=== PATIENT | female | born 1965 | race African-American/Black ===

== ENCOUNTER 2018-11-28 15:38 | Emergency (ER) | payer OTHER ==
--- OUTSIDE RECORDS SUMMARY | 2018-11-28 15:42 | XMS REPORT | Clinical Summary ---
:1965 Author Organization [facility] Address [address] [place] [address] Care Team Providers Name Role Phone Lj Lowe MD Primary Care Provider Allergies Active Allergy Reactions Severity Noted Date Comments Codeine 01/01/2017 Medications Medication Sig Dispensed Refills Start Date End Date Status carvedilol (COREG) 12.5 mg. 1/2 0 12/13/2016 Active 12.5 MG tablet tab bid lisinopril Take 20 mg by 1 10/31/2016 Active (PRINIVIL,ZESTRIL) mouth once 20 mg tablet daily. aspirin 325 MG Take 325 mg by 0 Active tablet mouth daily. pravastatin Take 40 mg by 0 Active (PRAVACHOL) 40 MG mouth daily. tablet TRULICITY 1.5 INJECT UNDER 1 03/05/2018 Active mg/0.5 mL pen THE SKIN 1 PEN injector EVERY WEEK OXcarbazepine Take 1 tab in 270 tablet 3 04/15/2018 Active (TRILEPTAL) 300 MG the AM and 1.5 tabletIndications: tabs in the PM Partial seizures with aphasia (HCC) diclofenac Apply topically 1 Tube 6 04/15/2018 Active (VOLTAREN) 1 % 4 (four) times gelIndications: a day. Lumbar radiculopathy, chronic, Chronic myelopathy (HCC) OXcarbazepine TAKE 1 TABLET 270 tablet 2 07/18/2018 Active (TRILEPTAL) 300 MG BY MOUTH EVERY tabletIndications: MORNING AND 1 & Partial seizures 1/2 TABLET with aphasia (HCC) EVERY EVENING KOMBIGLYZE XR Take 5 tablets 1 10/13/2016 Discontinued 5-1,000 mg tablet, by mouth once 8 ER multiphase 24 hr daily. diclofenac Apply topically 1 Tube 6 04/16/2017 Discontinued (VOLTAREN) 1 % 4 (four) times 8 gelIndications: a day. Lumbar radiculopathy, chronic OXcarbazepine Take 1 tab in 270 tablet 2 10/15/2017 Discontinued (TRILEPTAL) 300 MG the AM and 1.5 8 tabletIndications: tabs in the PM Partial seizures with aphasia (HCC) Active Problems Problem Noted Date Chronic myelopathy 04/15/2018 Partial seizures with aphasia 04/15/2018 Lumbar radiculopathy, chronic 04/15/2018 Encounters Date Type Specialty Care Team Description 07/17/2018 Refill Neurology Humberto Yoon MD Partial seizures with aphasia 04/15/2018 Office Visit Neurology Humberto Yoon MD Chronic myelopathy ( Primary Dx); Partial seizures with aphasia; Lumbar radiculopathy, chronic 04/15/2018 Orders Only Neurology Humberto Yoon MD 04/15/2018 Orders Only Neurology Humberto Yoon MD after 11/27/2017 Social History Tobacco Use Types Packs/Day Years Used Date Never Smoker Smokeless Tobacco: Never Used Alcohol Use Drinks/Week oz/Week Comments No Sex Assigned at Date Recorded Not on file Job Start Date Occupation Industry Not on file Not on file Not on file Travel History Travel Start Travel End No recent travel history available. Last Filed Vital Signs Vital Sign Reading Time Taken Blood Pressure 122/70 04/15/2018 10:03 AM CDT Pulse 84 04/15/2018 10:03 AM CDT Temperature - - Respiratory Rate - - Oxygen Saturation - - Inhaled Oxygen Concentration - - Weight 74.8 kg (165 lb) 04/15/2018 10:03 AM CDT Height 162.6 cm (5' 4") 04/15/2018 10:03 AM CDT Body Mass Index 28.32 04/15/2018 10:03 AM CDT Plan of Treatment Health Maintenance Due Date Last Done Comments CERVICAL CANCER SCREENING 1986 BREAST CANCER SCREENING 2015 COLON CANCER SCREENING 2015 SHINGLES VACCINES (1 of 2) 2015 INFLUENZA VACCINE 06/08/2018 Procedures Procedure Name Priority Date/Time Associated Comments Diagnosis OXCARBAZEPINE LEVEL Routine 04/15/2018 10:33 Results for this AM CDT procedure are in the results section. OXCARBAZEPINE LEVEL Routine 04/15/2018 10:33 Results for this AM CDT procedure are in the results section. BASIC METABOLIC PANEL Routine 04/15/2018 10:33 Results for this AM CDT procedure are in the results section. after 11/27/2017 Results Oxcarbazepine level (04/15/2018 10:33 AM CDT)Only the most recent of2 resultswithin the time period is included. Oxcarbazepine 8.9 8.0 - 35.0 mcg/mL [email or web address] [facility] Maps Narrative Performed At FASTING: UNKNOWN [facility] Resulting Agency Comment Performing Organization Information: Site ID: [id number] Name: [employer] [facility] Address: [address] [place] [id number] Director: Jarad Gomez M.D.,PhD Performing Organization Address City/State/Zipcode Phone Number [place] [email or web address] [address] [place] [address] [phone] [place] Basic metabolic panel (04/15/2018 10:33 AM CDT) Glucose 92 65 - 99 mg/dL [employer] Comment: [place] Fasting reference interval BUN, whole blood 7 7 - 25 mg/dL [email or web address] [place] Creatinine 0.74 0.50 - 1.05 [email or web address] Comment: mg/dL [place] For patients >49 years of age, the reference limit for Creatinine is approximately 13% higher for people identified as -Citizen Of [place]. EGFR Non-Afr. Citizen Of [place] 93 > OR=60 [facility] mL/min/1.73m2 [place] EGFR 108 > OR=60 [facility] mL/min/1.73m2 [place] BUN/creatinine ratio NOT APPLICABLE 6 - 22 (calc) [facility] [place] Sodium 140 135 - 146 mmol/L [facility] [place] Potassium 4.8 3.5 - 5.3 mmol/L [facility] [place] Chloride 108 98 - 110 mmol/L [facility] [place] CO2 26 20 - 31 mmol/L [facility] [place] Calcium 9.4 8.6 - 10.4 mg/dL [facility] [place] Narrative Performed At PT ID [id number] [facility] FASTING: UNKNOWN Resulting Agency Comment Performing Organization Information: Site ID: [id number] Name: [facility] Address: [address] [place] [phone] Director: Daisy Tabares Performing Organization Address City/State/Zipcode Phone Number [email or web address] [place] [address] [phone] after 11/27/2017 Insurance Payer Benefit Plan / Group Subscriber ID Type Phone Address AETNA AETNA PPO OPEN CHOICE xxxxxxxxxx PPO MEDICARE MEDICARE PART A AND B xxxxxxxxxx Medicare [place], [place] Advance Directives Patient has advance care planning documents on file. For more information, please contact:Juaquin Nath[address] [place] [address]
[2018-11-28 16:22] LABS: Absolute Lymphocytes (CBC) 2.8 K/uL (0.7-4.9); Absolute Monocytes 0.9 K/uL (0.1-1.3); Absolute Neutrophil 5.1 K/uL (1.8-8.0); Basophils % 0.8 % (0-1.3); Eosinophils % 1.2 % (0-4.4); Hematocrit 43.2 % (36.0-45.0); Lymphocytes % 30.9 % (15.3-44.8); MPV 8.1 fL (7.6-11.3); Monocytes % 9.8 % (3.3-12.3); RBC Red Blood Cell Count 5.13 M/uL (3.86-4.86)
[2018-11-28 16:41] LABS: BUN Blood Urea Nitrogen 13 mg/dL (7-18); Bicarbonate 28 mmol/L (21-32); Glucose Level 107 mg/dL (74-106); Potassium 3.5 mmol/L (3.5-5.1); Sodium Level 143 mmol/L (136-145); Troponin (Emerg Dept Use Only) < 0.02 ng/mL (0.0-0.045)
--- NOTE | 2018-11-28 17:00 | RAD REPORT ---
EXAM DESCRIPTION: Juaquin Mckeon (2 Views)11/28/2018 4:52 pm CLINICAL HISTORY: Chest pain COMPARISON: 2015 FINDINGS: The lungs appear clear of acute infiltrate. The heart is normal size IMPRESSION: No acute abnormalities displayed
--- NOTE | 2018-11-28 17:09 | EKG ---
Test Date: 2018-11-28 Test Time: 15:49:39 Manager Solar: [employer] MEASUREMENT RESULTS: Intervals: Rate: 83 MN: 110 QRSD: 80 QT: 346 QTc: 406 Veblen: P: 44 MN: 110 QRS: 74 T: -5 INTERPRETIVE STATEMENTS: Sinus rhythm with short MN Nonspecific T wave abnormality Abnormal ECG Compared to ECG 11/27/2015 14:58:20 No significant changes Electronically Signed On 11-28-18 17:08:05 MANUFA[employer]URING [employer]LLER by Jacky Bentley
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
--- NOTE | 2018-11-28 17:36 | ER ---
Nurse's Notes [facility] Name: Simeon Santa Age: 53 yrs Sex: Female : 1965 Arrival Date: 11/28/2018 Time: 15:39 Bed 20 Private MD: Matthew Lowe B Diagnosis: Other chest pain Presentation: 11/28 15:41 Presenting complaint: Patient states: left sided chest pain, nausea started today. SOB sv with ambulation. Transition of care: patient was not received from another setting of care. Onset of symptoms was November 28, 2018. Care prior to arrival: None. 15:41 Method Of Arrival: Wheelchair sv 15:41 Acuity: VISHNU 3 sv 16:19 Risk Assessment: Do you want to hurt yourself or someone else? Patient reports no hb desire to harm self or others. Initial Sepsis Screen: Does the patient meet any 2 criteria? No. Patient's initial sepsis screen is negative. Does the patient have a suspected source of infection? No. Patient's initial sepsis screen is negative. Historical: - Allergies: 15:42 Codeine; sv - PMHx: 15:42 Hypertension; Diabetes - NIDDM; sv - PSHx: 15:42 brain sx (2011); radiation; sv - Immunization history:: Adult Immunizations up to date. - Social history:: Smoking status: Patient/guardian denies using tobacco. - Ebola Screening: : No symptoms or risks identified at this time. Screenin:48 Abuse screen: Denies threats or abuse. Denies injuries from another. Nutritional hb screening: No deficits noted. Tuberculosis screening: No symptoms or risk factors identified. Fall Risk None identified. Assessment: 15:55 General: Appears in no apparent distress. Behavior is calm, cooperative. Pain: hb Complains of pain in anterior aspect of left upper chest Pain does not radiate. Pain began suddenly, 3 hours ago. Neuro: Level of Consciousness is awake, alert, obeys commands, Oriented to person, place, time, situation. Cardiovascular: Heart tones S1 S2 present Capillary refill < 3 seconds Patient's skin is warm and dry. Respiratory: Airway is patent Respiratory effort is even, unlabored, Respiratory pattern is regular, symmetrical, Breath sounds are clear bilaterally. GI: No signs and/or symptoms were reported involving the gastrointestinal system. : No signs and/or symptoms were reported regarding the genitourinary system. EENT: No signs and/or symptoms were reported regarding the EENT system. Derm: Skin is intact, is healthy with good turgor, Skin is pink, warm \T\ dry. normal. Musculoskeletal: No signs and/or symptoms reported regarding the musculoskeletal system. 16:45 Reassessment: Patient appears in no apparent distress at this time. No changes from hb previously documented assessment. Patient and/or family updated on plan of care and expected duration. Pain level reassessed. Patient is alert, oriented x 3, equal unlabored respirations, skin warm/dry/pink. 17:45 Reassessment: Patient appears in no apparent distress at this time. No changes from hb previously documented assessment. Patient and/or family updated on plan of care and expected duration. Pain level reassessed. Patient is alert, oriented x 3, equal unlabored respirations, skin warm/dry/pink. Vital Signs: 15:42 BP 140 / 85; Pulse 89; Resp 16; Temp 98; Pulse Ox 100% ; Weight 72.57 kg; Height 5 ft. sv 5 in. (165.10 cm); Pain 4/10; 16:45 BP 138 / 88; Pulse 87; Resp 16; Pulse Ox 99% on R/A; hb 17:45 BP 136 / 86; Pulse 86; Resp 16; Pulse Ox 100% on R/A; Pain 3/10; hb 15:42 Body Mass Index 26.63 (72.57 kg, 165.10 cm) sv ED Course: 15:39 Patient arrived in ED. sb2 15:39 Matthew Lowe MD is Private Physician. sb2 15:41 Triage completed. sv 15:43 Arm band placed on. sv 15:44 Michelle Harden, AMADO is Primary Nurse. hb 15:48 Patient has correct armband on for positive identification. Placed in gown. Bed in low hb position. Call light in reach. Side rails up X 1. court recording monitor on. Pulse ox on. NIBP on. 15:48 Patient maintains SpO2 saturation greater than 95% on room air. hb 15:51 [facility]ins [facility]. jr8 15:51 Xander Jones MD is Attending Physician. jr8 16:04 EKG done, by electrophysiology tech. reviewed by Domenico MCKINNON. 3 16:20 Initial lab(s) drawn, by ne, sent to lab. Inserted saline lock: 22 gauge in right 5 antecubital area, using aseptic technique. Blood collected. 16:20 Basic Metabolic Panel Sent. 5 16:20 CBC with Diff Sent. [facility] 16:21 Troponin (emerg Dept Use Only) Sent. [facility] 16:48 Patient moved to radiology via wheelchair. 16:48 X-ray completed. Patient tolerated procedure well. 16:48 Patient moved back from radiology. 16:55 XRAY Chest Pa And Lat (2 Views) In Process Unspecified. EDNV 17:35 Matthew Lowe MD is Referral Physician. [facility] 18:02 No provider procedures requiring assistance completed. IV discontinued, intact, hb bleeding controlled, No redness/swelling at site. Pressure dressing applied. Administered Medications: No medications were administered Outcome: 17:35 Discharge ordered by . [facility] 18:02 Discharged to home ambulatory, with significant other. hb 18:02 Condition: stable 18:02 Discharge instructions given to patient, significant other, Instructed on discharge instructions, follow up and referral plans. medication usage, Demonstrated understanding of instructions, follow-up care, medications, Prescriptions given X 2. 18:03 Patient left the ED. Signatures: Dispatcher [employer] EDNV Jenise Oh, RN Domenico Pedersen PA PA 8 Michelle Harden, Richelle Cantrell RN 5 Kobe Palmer Sheri 2 Sunshine Rapp 3
[2018-11-28 18:19] VITALS: TEMP 98
[2018-11-28 18:20] VITALS: BP 136/86; O2SAT 100
== END 2018-11-28 18:03 | disposition home or self-care (01) ==
LOC: ER 15:38
DX: R07.89 Other chest pain (principal); Z88.6 Allergy status to analgesic agent
CPT/HCPCS: 36415; 71046; 80048; 84484; 85025; 93005; 99285

== ENCOUNTER 2019-11-02 06:24 | Emergency (ER) | payer OTHER ==
[2019-11-02] MEDS ORDERED: ACETAMINOPHEN 500 MG TAB ONE (07:07)
[2019-11-02] MEDS ORDERED: IBUPROFEN 200 MG TAB PO ONE (07:07)
[2019-11-02] MEDS ORDERED: IBUPROFEN 400 MG TAB ONE (07:09)
--- NOTE | 2019-11-02 07:55 | EDPHYS ---
Physician Documentation [facility] Name: Simeon Santa Age: 54 yrs Sex: Female : 1965 Arrival Date: 11/02/2019 Time: 06:25 Bed 5 Private MD: ED Physician Xander Jones HPI: 11/02 07:29 This 54 yrs old Black Female presents to ER via Wheelchair with complaints of Flu la1 Symptoms. 07:29 The patient reports fever, that was measured at 100.3 degrees Fahrenheit. Onset: The la1 symptoms/episode began/occurred yesterday. Modifying factors: The patient has had contact with sick grandchild with flu . Associated signs and symptoms: Pertinent positives: cough, myalgias. Severity of symptoms: At their worst the symptoms were mild in the emergency department the symptoms have improved. The patient has not experienced similar symptoms in the past. The patient has not recently seen a physician. pt reports she began having muscle aches, cough, chills, last night, was exposed to a child with the flu recently. 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 - Social history:: Smoking status: Patient/guardian denies using tobacco, Patient/guardian denies using alcohol, street drugs. - Ebola Screening: : No symptoms or risks identified at this time. ROS: 07:30 ENT: Negative for injury, pain, and discharge, Neck: Negative for injury, pain, and la1 swelling. 07:30 Abdomen/GI: Negative for abdominal pain, nausea, vomiting, diarrhea, and constipation, Back: Negative for injury and pain, : Negative for injury, bleeding, discharge, and swelling, MS/Extremity: Negative for injury and deformity, Neuro: Negative for headache, weakness, numbness, tingling, and seizure. 07:30 Constitutional: Positive for body aches, chills, fever, malaise. 07:30 Eyes: Negative for acute changes, icterus, matting, photophobia, redness. 07:30 Respiratory: Positive for cough, Negative for hemoptysis, orthopnea, pleurisy, shortness of breath, sputum production, wheezing. Exam: 07:31 Constitutional: This is a well developed, well nourished patient who is awake, alert, la1 and in no acute distress. Head/Face: Normocephalic, atraumatic. Eyes: Pupils equal round and reactive to light, extra-ocular motions intact. Periorbital areas with no swelling, redness, or edema. ENT: Nares patent. No nasal discharge, no septal abnormalities noted. Tympanic membranes are normal and external auditory canals are clear. Oropharynx with no redness, swelling, or masses, exudates, or evidence of obstruction, uvula midline. Mucous membranes moist. Neck: Trachea midline and no cervical lymphadenopathy. Supple, full range of motion without nuchal rigidity, or vertebral point tenderness. No Meningismus. Chest/axilla: Normal chest wall appearance and motion. Nontender with no deformity. No lesions are appreciated. Cardiovascular: Regular rate and rhythm with a normal S1 and S2. No gallops, murmurs, or rubs. Normal PMI, no JVD. No pulse deficits. Respiratory: Lungs have equal breath sounds bilaterally, clear to auscultation No rales, rhonchi or wheezes noted. No increased work of breathing, no retractions or nasal flaring. Abdomen/GI: Soft, non-tender, with normal bowel sounds. No distension No guarding or rebound. No evidence of tenderness throughout. Back: No spinal tenderness. No costovertebral tenderness. Full range of motion. MS/ Extremity: Pulses equal, no cyanosis. Neurovascular intact. Full, normal range of motion. Neuro: Awake and alert, GCS 15, oriented to person, place, time, and situation. . Normal gait. Vital Signs: 06:50 BP 116 / 70; Pulse 118; Resp 18; Temp 100.3(O); Pulse Ox 97% on R/A; Weight 72.57 kg jb4 (R); Height 5 ft. 5 in. (165.10 cm); Pain 8/10; 07:30 BP 132 / 71; Pulse 116; Resp 19 S; Pulse Ox 95% on R/A; jl7 08:00 BP 129 / 63; Pulse 105; Resp 18 S; Pulse Ox 97% ; aa5 06:50 Body Mass Index 26.63 (72.57 kg, 165.10 cm) jb4 MDM: 06:50 Patient medically screened. [facility] 07:52 Data reviewed: vital signs, nurses notes, lab test result(s), and as a result, I will la1 discharge patient. Data interpreted: Pulse oximetry: on room air is 95 %. Interpretation: acceptable. Counseling: I had a detailed discussion with the patient and/or guardian regarding: the historical points, exam findings, and any diagnostic results supporting the discharge/admit diagnosis, lab results, the need for outpatient follow up, a family practitioner, to return to the emergency department if symptoms worsen or persist or if there are any questions or concerns that arise at home. ED course: Pt in no respiratory distress, tolerating PO, discussed return precautions. . 11/02 07:04 Order name: Flu la1 11/02 07:04 Order name: Strep; Complete Time: 07:37 la1 11/02 07:05 Order name: Influenza Screen (A ; Complete Time: 07:37 EDMS 11/02 07:30 Order name: Throat Culture EDMS Administered Medications: 07:06 CANCELLED (Other Intervention Used): Tylenol 1000 mg PO once la1 07:11 Drug: Motrin 600 mg Route: PO; 7 08:00 Follow up: Response: No adverse reaction aa5 08:00 Drug: Tamiflu 75 mg Route: PO; aa5 08:00 Follow up: Response: No adverse reaction; Medication administered at discharge. aa5 Disposition: 11/03 05:39 Co-signature as Attending Physician, Xander Jones MD I agree with the assessment and [facility] plan of care. Disposition: 11/02/19 07:53 Discharged to Home. Impression: Influenza due to identified novel influenza A virus. - Condition is Stable. - Discharge Instructions: Fever, Adult, Influenza, Adult. - Prescriptions for Tamiflu 75 mg Oral Capsule - take 1 tablet by ORAL route every 12 hours for 5 days; 9 tablet. - Medication Reconciliation Form, Thank You Letter form. - Follow up: Private Physician; When: 2 - 3 days; Reason: Recheck today's complaints, Re-evaluation by your physician. Follow up: Emergency Department; When: As needed. - Problem is new. - Symptoms have improved. Signatures: Dispatcher [employer] EDMS Xander Jones MD MD cha Calderon, Audri, RN RN aa5 Joshua Nichole, PIPE FITTER GAS PIPE-C PIPE FITTER GAS PIPE-Cla1 Quan Robbins, RN RN jb4 Laura Birch RN RN jl7 Corrections: (The following items were deleted from the chart) 11/02 07:06 07:04 Tylenol 1000 mg PO once ordered. la1 la1 08:07 07:53 11/02/2019 07:53 Discharged to Home. Impression: Influenza due to identified aa5 novel influenza A virus. Condition is Stable. Forms are Medication Reconciliation Form, Thank You Letter, Antibiotic Education, Prescription Opioid Use. Follow up: Private Physician; When: 2 - 3 days; Reason: Recheck today's complaints, Re-evaluation by your physician. Follow up: Emergency Department; When: As needed. Problem is new. Symptoms have improved. la1
--- NOTE | 2019-11-02 07:55 | ER ---
Nurse's Notes [facility] Name: Simeon Santa Age: 54 yrs Sex: Female : 1965 Arrival Date: 11/02/2019 Time: 06:25 Bed 5 Private MD: Diagnosis: Influenza due to identified novel influenza A virus Presentation: 11/02 06:50 Presenting complaint: Patient states: Yesterday I started having a soar throat which jb4 progressed to cough and a stuffy nose. It only worsened to having body aches, chills, and fever. 06:50 Transition of care: patient was not received from another setting of care. Onset of jb4 symptoms was November 02, 2019. Risk Assessment: Do you want to hurt yourself or someone else? Patient reports no desire to harm self or others. Initial Sepsis Screen: Does the patient meet any 2 criteria? HR > 90 bpm. Yes Does the patient have a suspected source of infection? No. Patient's initial sepsis screen is negative. Care prior to arrival: None. 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 - Social history:: Smoking status: Patient/guardian denies using tobacco, Patient/guardian denies using alcohol, street drugs. - Ebola Screening: : No symptoms or risks identified at this time. Screenin:00 Abuse screen: Denies threats or abuse. Denies injuries from another. Nutritional jl7 screening: No deficits noted. Tuberculosis screening: No symptoms or risk factors identified. Fall Risk None identified. Assessment: 07:00 General: Appears in no apparent distress. uncomfortable, ill, Behavior is calm, jl7 cooperative, appropriate for age. Pain: Complains of pain in all over Pain currently is 8 out of 10 on a pain scale. Quality of pain is described as aching, Is continuous. Neuro: Level of Consciousness is awake, alert, obeys commands, Oriented to person, place, time, situation. Cardiovascular: Patient's skin is warm and dry. Respiratory: Reports sneezing Airway is patent Respiratory effort is even, unlabored, Respiratory pattern is regular, symmetrical. GI: No signs and/or symptoms were reported involving the gastrointestinal system. : No signs and/or symptoms were reported regarding the genitourinary system. EENT: Nares are clear bilaterally Throat is pink has enlarged tonsils bilaterally. Derm: Skin is pink, warm \T\ dry. Musculoskeletal: No signs and/or symptoms reported regarding the musculoskeletal system. 08:00 Neuro: Level of Consciousness is awake, alert, obeys commands, Oriented to person, aa5 place, time, situation. Respiratory: Airway is patent Respiratory effort is even, unlabored, Respiratory pattern is regular, symmetrical. Derm: Skin is dry, Skin is normal, Skin temperature is warm. Vital Signs: 06:50 BP 116 / 70; Pulse 118; Resp 18; Temp 100.3(O); Pulse Ox 97% on R/A; Weight 72.57 kg jb4 (R); Height 5 ft. 5 in. (165.10 cm); Pain 8/10; 07:30 BP 132 / 71; Pulse 116; Resp 19 S; Pulse Ox 95% on R/A; jl7 08:00 BP 129 / 63; Pulse 105; Resp 18 S; Pulse Ox 97% ; aa5 06:50 Body Mass Index 26.63 (72.57 kg, 165.10 cm) jb4 ED Course: 06:25 Patient arrived in ED. ds1 06:27 Joshua Nichole FNP-C [facility] la1 06:27 Xander Jones MD is Attending Physician. la1 06:27 Joshua Nichole FNP-C [facility] la1 06:27 Xander Jones MD is Attending Physician. la1 06:50 Arm band placed on right wrist. jb4 07:00 Patient has correct armband on for positive identification. Bed in low position. Call jl7 light in reach. Side rails up X 1. Pulse ox on. NIBP on. 07:00 Flu and/or RSV swab sent to lab. Strep swab sent to lab. jl7 07:02 Triage completed. jb4 07:10 Laura Birch, RN is Primary Nurse. jl7 08:00 No provider procedures requiring assistance completed. Patient did not have IV access aa5 during this emergency room visit. Administered Medications: 07:06 CANCELLED (Other Intervention Used): Tylenol 1000 mg PO once la1 07:11 Drug: Motrin 600 mg Route: PO; jl7 08:00 Follow up: Response: No adverse reaction aa5 08:00 Drug: Tamiflu 75 mg Route: PO; aa5 08:00 Follow up: Response: No adverse reaction; Medication administered at discharge. aa5 Outcome: 07:53 Discharge ordered by . la1 08:00 Discharged to home ambulatory, with significant other. aa5 08:00 Condition: stable 08:00 Discharge instructions given to patient, Instructed on discharge instructions, follow up and referral plans. medication usage, Demonstrated understanding of instructions, follow-up care, medications, Prescriptions given X 1. 08:07 Patient left the ED. aa5 Signatures: Loreto Yang ds1 Guerita Chaney, RN RN aa5 Joshua Nichole, CARBON ACCOUNTANT-C CARBON ACCOUNTANT-Cla1 Quan Robbins, RN RN jbLaura Flynn, RN RN jl7
[2019-11-02] MEDS ORDERED: OSELTAMIVIR 75 MG CAP ONE (07:59)
[2019-11-02 08:22] VITALS: TEMP 100.3
[2019-11-02 08:23] VITALS: BP 129/63; O2SAT 97
== END 2019-11-02 08:07 | disposition home or self-care (01) ==
LOC: ER 06:24
DX: J11.1 Influenza due to unidentified influenza virus with other respiratory manifestations (principal); I10 Essential (primary) hypertension; E11.9 Type 2 diabetes mellitus without complications; E78.00 Pure hypercholesterolemia, unspecified; Z88.5 Allergy status to narcotic agent
CPT/HCPCS: 87070; 87081; 87804; 99284

== ENCOUNTER 2020-10-25 13:58 | Emergency (ER) | payer OTHER ==
--- OUTSIDE RECORDS SUMMARY | 2020-10-25 14:00 | XMS REPORT | Clinical Summary ---
:1965 Author Organization [facility] Address [address] [place] [address] Care Team Providers Name Role Phone Matthew Lowe MD Primary Care Provider Allergies Active Allergy Reactions Severity Noted Date Comments Codeine 01/01/2017 Medications Medication Sig Dispensed Refills Start End Status Date Date carvedilol (COREG) 12.5 12.5 mg. 1/2 0 12/13/19 Active MG tablet tab bid 17 lisinopril Take 20 mg by 1 10/31/20 Activ e (PRINIVIL,ZESTRIL) 20 mouth once 16 mg tablet daily. aspirin 325 MG tablet Take 325 mg 0 Active by mouth daily. pravastatin (PRAVACHOL) Take 40 mg by 0 Active 40 MG tablet mouth daily. TRULICITY 1.5 mg/0.5 mL INJECT UNDER 1 03/05/20 Active pen injector THE SKIN 1 18 PEN EVERY WEEK omeprazole (PriLOSEC) Take by mouth 1 02/28/20 Active 40 MG capsule daily. 19 cholecalciferol, Take 1,000 0 Ac tive vitamin D3, (VITAMIN Units by D3) 1,000 unit tablet mouth daily. medroxyprogesterone Inject into 0 Active acetate (DEPO-PROVERA the shoulder, IM) thigh, or buttocks. levothyroxine Take 75 mcg 0 Acti ve (SYNTHROID) 75 mcg by mouth tablet daily. OXcarbazepine TAKE 1 & 1/2 360 tablet 3 03/05/20 A ctive (TRILEPTAL) 300 MG TABLET q12 20 tabletIndications: Partial seizures with aphasia (HCC) diclofenac (VOLTAREN) 1 Apply 1 Tube 6 03/05/20 Active % gelIndications: topically 4 20 Lumbar radiculopathy, (four) times chronic, Chronic a day. myelopathy (HCC) meloxicam (MOBIC) 15 mg TAKE 1 TABLET 30 tablet 0 04/02/20 Active tabletIndications: BY MOUTH 20 Lumbar radiculopathy, EVERY DAY chronic tiZANidine (ZANAFLEX) 2 TAKE 1 TABLET 60 tablet 0 05/01/20 Active MG tabletIndications: BY MOUTH 20 Lumbar radiculopathy, TWICE A DAY chronic NEEDED FOR MUSCLE SPASM diclofenac (VOLTAREN) 1 Apply 1 Tube 6 04/15/20 Discontinued % gelIndications: topically 4 18 020 (Reorder) Lumbar radiculopathy, (four) times chronic, Chronic a day. myelopathy (HCC) metFORMIN XR Take 500 mg 1 10/18/20 Disco ntinued (GLUCOPHAGE-XR) 500 mg by mouth 2 18 020 (Therapy 24 hr tablet (two) times a com pleted) day. OXcarbazepine TAKE 1 & 1/2 360 tablet 1 10/11/20 D iscontinued (TRILEPTAL) 300 MG TABLET q12 19 020 (Reorder) tabletIndications: Partial seizures with aphasia (HCC) meloxicam (Mobic) 15 mg Take 1 tablet 30 tablet 0 03/05/20 Discontinued tabletIndications: (15 mg total) 20 020 Lumbar radiculopathy, by mouth chronic daily. tiZANidine (ZANAFLEX) 2 Take 1 tablet 60 tablet 1 03/05/20 Discontinued MG tabletIndications: (2 mg total) 20 020 Lumbar radiculopathy, by mouth 2 chronic (two) times a day as needed for muscle spasms for up to 30 days. tiZANidine (ZANAFLEX) 2 TAKE 1 TABLET 60 tablet 0 04/04/20 Discontinued MG tabletIndications: BY MOUTH 20 020 Lumbar radiculopathy, TWICE A DAY chronic NEEDED FOR MUSCLE SPASMS Active Problems Problem Noted Date Nontoxic multinodular goiter 04/17/2019 Chronic myelopathy 04/15/2018 Partial seizures with aphasia 04/15/2018 Lumbar radiculopathy, chronic 04/15/2018 Encounters Date Type Specialty Care Team Description 05/28/2020 Refill Neurology Ninan, Humberto, MD Lumbar radic ulopathy, chronic 04/30/2020 Refill Neurology Humberto Yoon MD Lumbar radic ulopathy, chronic 04/02/2020 Refill Neurology Humberto Yoon MD Lumbar radic ulopathy, chronic 04/02/2020 Refill Neurology Humberto Yoon MD Lumbar radic ulopathy, chronic 03/14/2020 Orders Only Neurology Humberto Yoon MD 03/05/2020 Office Visit Neurology Humberto Yoon MD Chronic myel opathy (HCC) (Primary Dx); Partial seizure s with aphasia (HCC); Lumbar radiculo mikaela, chronic; Left leg weakne ss; Coordination ab normal 03/05/2020 Orders Only Neurology Khanh Garcia MA Left leg weakness (Primary Dx); Coordination ab normal 03/05/2020 Travel after 10/25/2019 Surgical History Surgery Date Site/Laterality Comments BRAIN SURGERY CYST REMOVAL under rt arm THYROIDECTOMY, TOTAL 04/17/2019 Neck/Right Procedure: RIGHT THYROIDECTOMY; Surgeon: Pravin Beltran MD; Location: [facility] OP C 18 OR; Service: ENT; Laterality : Right; Medical History Medical History Date Comments Brain tumor (benign) (HCC) Diabetes mellitus (HCC) Essential hypertension, benign Hemifacial spasm Hyperlipidemia CTS (carpal tunnel syndrome) Anesthesia NHAP NFHAP No CP or SOB, Exercises regularly cardio 3x wk 45 min . Reading glasses, all teeth s ecure. Seizures (HCC) Last seizure petite mal . Type 2 diabetes mellitus (HCC) GERD (gastroesophageal reflux disease) Stroke (HCC) TIA after brain surg gila Disease of thyroid gland Hypercholesteremia Sleep apnea Uses machine periodi mynor, not daily. Social History Tobacco Use Types Packs/Day Years Used Date Never Smoker Smokeless Tobacco: Never Used Alcohol Use Drinks/Week oz/Week Comments No Sex Assigned at Date Recorded Not on file Last Filed Vital Signs Vital Sign Reading Time Taken Comments Blood Pressure 138/82 03/05/2020 12:45 PM CDT Pulse 76 03/05/2020 12:45 PM CDT Temperature 36.8 C (98.2 F) 03/05/2020 12:45 PM CDT Respiratory Rate - - Oxygen Saturation - - Inhaled Oxygen Concentration - - Weight 74.8 kg (165 lb) 03/05/2020 12:45 PM CDT Height 162.6 cm (5' 4") 03/05/2020 12:45 PM CDT Body Mass Index 28.32 03/05/2020 12:45 PM CDT Plan of Treatment Health Maintenance Due Date Last Done Comments COVID-19 VACCINE (#1) 1981 CERVICAL CANCER SCREENING 1986 BREAST CANCER SCREENING 2015 COLONOSCOPY SCREENING 2015 SHINGLES VACCINES (#1) 2015 INFLUENZA VACCINE 06/08/2020 Procedures Procedure Name Priority Date/Time Associated Comments Diagnosis OXCARBAZEPINE LEVEL Routine 03/14/2020 11:40 Resu lts for this AM CDT procedure are i n the results section. COMPREHENSIVE Routine 03/14/2020 11:40 Results fo r this METABOLIC PANEL AM CDT procedure ar e in the results section. after 10/25/2019 Results Oxcarbazepine level (03/14/2020 11:40 AM CDT) Oxcarbazepine 22.0 8.0 - 35.0 [facility] Comment: mcg/mL DIAGNOSTICS/[facility] NO COLLECTION DATE RECEIVED. WE HAVE USED S [facility]ANY[facility] THE DATE THE SPECIMEN WAS RECEIVED BY THIS LABORATORY THE COLLECTION DATE. IF THIS IS INCORRECT, PLEASE CONTACT CLIENT SERVICES. PHONE NUMBER: [phone] Specimen Narrative Performed At FASTING: [facility] Resulting Agency Comment Performing Organization Information: Site ID: [id number] Name: [facility] Address: [address] [place] [address] [place], [place] Director: Jarad Gomez M.D.,PhD Performing Organization Address City/State/ZIP Code Phon e Number [facility] [id number] [place], [place] [address] [place] Comprehensive metabolic panel (03/14/2020 11:40 AM CDT) Glucose 107 (H) 65 - 99 [facility] Comment: mg/dL BAN Fasting reference interval For someone without known diabetes, a glucose value between 100 and 125 mg/dL is consistent with prediabetes and should be confirmed with a follow-up test. BUN 9 7 - 25 mg/dL [facility] [place] Creatinine 0.81 0.50 - 1.05 [facility] Comment: mg/dL [place] For patients >49 years of age, the reference limit for Creatinine is approximately 13% higher for people identified as -[place]. EGFR Non-Afr. 82 > OR = 60 [facility] [place] mL/min/1.73m [place] 2 EGFR 95 > OR = 60 [facility] [place] mL/min/1.73m [place] 2 BUN/creatinine NOT APPLICABLE 6 - 22 [facility] ratio (calc) [place] Sodium 140 135 - 146 [facility] mmol/L [place] Potassium 4.0 3.5 - 5.3 [facility] mmol/L [place] Chloride 105 98 - 110 [facility] mmol/L [place] CO2 29 20 - 32 [facility] mmol/L [place] Calcium 9.6 8.6 - 10.4 [facility] mg/dL [place] Protein 7.0 6.1 - 8.1 [facility] g/dL [place] Albumin, S 4.0 3.6 - 5.1 [facility] g/dL [place] Globulin, total 3.0 1.9 - 3.7 [facility] g/dL (calc) [place] Albumin/globulin 1.3 1.0 - 2.5 [facility] ratio (calc) [place] Total bilirubin 0.4 0.2 - 1.2 [facility] mg/dL [place] Alkaline 123 37 - 153 U/L [facility] phosphatase [place] AST 17 10 - 35 U/L [facility] [place] ALT 19 6 - 29 U/L [facility] [place] Specimen Narrative Performed At FASTING: [facility] Resulting Agency Comment Performing Organization Information: Site ID: [id number] Name: [facility] Mackenzie patterson Address: [address] [place] [id number] Director: Shyam Gregg Performing Organization Address City/State/ZIP Code Phon e [email or web address] [address] after 10/25/2019 Advance Directives For more information, please contact: [phone] Type Date Recorded 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
--- OUTSIDE RECORDS SUMMARY | 2020-10-25 14:01 | XMS REPORT | Continuity of Care Document ---
:1965 Author Organization [facility] t Address [address] [place] [address] [address] [place] [address] Care Team Providers Name Role Phone Chato Lowe MD Primary Care Physician Car GONZALEZ Attending Clinician Radha BECK Attending Clinician Unavailable ALEX Attending Clinician Unavailable ALEX Admitting Clinician Unavailable Payers Payer Name Policy Type Policy Effective Date Expiration Date Sour ce Number AETNA MEDICAREAETNA [id number] 2020 [place] MED[place] H[place]/PPO 0 00:00:00 Methodis t [id number] Problems Condition Condition Condition Status Onset Resolution Last Treating Co mments Source Name Details Category Date Date Treatment Clinician Date Nontoxic Nontoxic Disease Active [place] multinodul multinodul 6-10 Me thodi ar goiter ar goiter 00:00: st 00 Chronic Chronic Disease Active [place] myelopathy myelopathy 6-08 Me thodi 00:00: st 00 Partial Partial Disease Active [place] seizures seizures 6-08 Method i with with 00:00: st aphasia aphasia 00 Lumbar Lumbar Disease Active [place] radiculopa radiculopa 6-08 Me thodi thy, thy, 00:00: st chronic chronic 00 Allergies, Adverse Reactions, Alerts Allergy Allergy Status Severity Reaction(s) Onset Inactive Treating Comm ents Source Name Type Date Date Clinician Sheeba Rodarte Active [place] ty to 2-24 [facility] adverse 00:00: st reaction 00 s to drug Social History Social Habit Start Date Stop Date Quantity Comments Source Sex Assigned At [facility] Tobacco use and 2019-04-19 2019-04-19 Never used [facility] exposure 00:00:00 00:00:00 Alcohol intake 2019-04-19 2019-04-[address] [facility] thodist 00:00:00 00:00:00 non-drinker of alcohol (finding) Smoking Status Start Date Stop Date Source Never smoker Juaquin shaw Medications Ordered Filled Start Stop Current Ordering Indication Dosage Frequency Signature Comments Components Source Medication Medication Date Date Medication? Clinician (SIG) Name Name tiZANidine 2020-0 Yes Lumbar TAKE 1 Paul [place] (ZANAFLEX) 6-24 radiculopat TABLET BY [facility] 2 MG tablet 00:00: hy, chronic MOUTH st 00 TWICE A DAY NEEDED FOR MUSCLE SPASM tiZANidine 2020-0 2020- No Lumbar TAKE 1 [place] (ZANAFLEX) 5-28 06-24 radiculopat TABLET BY [facility] 2 MG tablet 00:00: 00:00 hy, chronic MOUTH st 00 :00 TWICE A DAY NEEDED FOR MUSCLE SPASMS meloxicam 2020-0 Yes Lumbar TAKE 1 [place] (MOBIC) 15 5-26 radiculopat TABLET BY [facility] mg tablet 00:00: hy, chronic MOUTH st 00 EVERY DAY levothyroxi 2020-0 Yes 75ug QD Take 75 Paul ston ne 4-28 mcg by [facility] (SYNTHROID) 12:47: mouth st 75 mcg 41 daily. tablet OXcarbazepi 2020-0 Yes Partial TAKE 1 & Reza ne 4-28 seizures 1/2 TABLET Metho di (TRILEPTAL) 00:00: with q12 st 300 MG 00 aphasia tablet (HCC) diclofenac 2020-0 Yes Chronic Q.25D Apply [place] (VOLTAREN) 4-28 myelopathy topically [facility] 1 % gel 00:00: (HCC) 4 (four) st 00 times a day. tiZANidine 2020-0 2020- No Lumbar 2mg Q.5D Take 1 [place] (ZANAFLEX) 4-28 05-28 radiculopat tablet (2 [facility] 2 MG tablet 00:00: 00:00 hy, chronic mg total) st 00 :00 by mouth 2 (two) times a day as needed for muscle spasms for up to 30 days. meloxicam 2019-0 2020- No Lumbar 15mg QD Take 1 Paul [place] (Mobic) 15 -28 05-26 radiculopat tablet (15 Methodi mg tablet 00:00: 00:00 hy, chronic mg total) st 00 :00 by mouth daily. OXcarbazepi 2018-11- No Partial TAKE 1 & Juaquin ne 12-1228 seizures 1/2 TABLET Meth michele (TRILEPTAL) 00:00: 00:[address] 300 MG 00 :00 aphasia tablet (HCC) aspirin 325 Yes 325mg QD Take 325 [place] MG tablet 6-11 mg by Methodi 12:55: mouth st 33 daily. pravastatin Yes 40mg QD Take 40 mg Reza (PRAVACHOL) 6-11 by mouth Meth michele 40 MG 12:55: daily. st tablet 33 cholecalcif Yes 1000U QD Take 1,000 Reza amtilda, 6-11 Units by [facility] vitamin D3, 12:55: mouth st (VITAMIN 33 daily. D3) 1,000 unit tablet medroxyprog Yes Inject [place] esterone 6-11 into the [facility] acetate 12:55: shoulder, st (DEPO-PROVE 33 thigh, or RA IM) buttocks. omeprazole Yes QD Take by [place] (PriLOSEC) 4-22 mouth [facility] 40 MG 00:00: daily. st capsule 00 metFORMIN 2017-11- No 500mg Q.5D Take 500 [place] XR 2-11 04-27 mg by [facility] (GLUCOPHAGE 00:00: 00:[address] -XR) 500 mg 00 :00 (two) 24 hr times a tablet day. diclofenac 2019- No Chronic Q.25D Apply [place] (VOLTAREN) 04-1528 myelopathy topically Method[facility] 1 % gel 00:00: 00:00 (HCC) 4 (four) st 00 :00 times a day. TRULICITY Yes INJECT [place] 1.5 mg/0.5 03-05 UNDER THE Meth michele mL pen 00:00: SKIN [address] injector 00 EVERY WEEK carvedilol Yes 12.5mg 12.5 mg. [place] (COREG) 211/09 tab [facility] 12.5 MG 00:00: bid st tablet 00 lisinopril 2015-11 Yes 20mg QD Take 20 mg [place] (PRINIVIL,Z 2-24 by mouth Meth michele ESTRIL) 20 00:00: once st mg tablet 00 daily. Vital Signs Vital Name Observation Time Observation Value Comments Source Systolic blood 2020-03-05 12:45:00 138 mm[Hg] Jayneto n [place] pressure Diastolic blood 2020-03-05 12:45:00 82 mm[Hg] Nina on [facility] pressure Heart rate 2020-03-05 12:45:00 76 /min [place] Body temperature 2020-03-05 12:45:00 36.78 Helen Jayne walter [place] Body height 2020-03-05 12:45:00 162.6 cm [place] [facility] Body weight 2020-03-05 12:45:00 74.844 kg [place] [facility] BMI 2020-03-05 12:45:00 28.32 kg/m2 [place] [facility] Procedures Procedure Date / Time Performed Performing Clinician Sour e COMPREHENSIVE METABOLIC 2020-03-14 11:40:00 Stevie Sauceda [facility] PANEL OXCARBAZEPINE LEVEL 2020-03-14 11:40:00 Stevie Sauceda Plan of Care Planned Activity Planned Date Details Comments Source Future Scheduled 2020-06-08 INFLUENZA VACCINE [place] [facility] Test 00:00:00 [code = INFLUENZA VACCINE] Future Scheduled [address] [facility] thodist Test 00:00:00 SCREENING [code = BREAST CANCER SCREENING] Future Scheduled 2015 COLONOSCOPY SCREENING [place] [facility] Test 00:00:00 [code = COLONOSCOPY SCREENING] Future Scheduled 2015 SHINGLES VACCINES [place] [facility] Test 00:00:00 (#1) [code = SHINGLES VACCINES (#1)] Future Scheduled [address] [facility] thodist Test 00:00:00 malignant neoplasm of cervix (procedure) [code = 725770563] Future Scheduled 1981 COVID-19 VACCINE (#1) [place] [facility] Test 00:00:00 [code = COVID-19 VACCINE (#1)] Encounters Start End Encounter Admission Attending Care Care Encounter Source Date/Time Date/Time Type Type Clinicians Facility Department ID 2020-03-05 2020-03-05 Outpatient STEVIE SAUCEDA [facility] [id number] [place] 00:00:00 00:00:[address] 2019-04-17 2019-04-18 Outpatient ALEX [facility] [id number] [place] 00:00:00 00:00:[address] [facility] Results Test Description Test Time Test Comments Results Result Comments Source Comprehensive metabolic panel 2020-03-14 11:40:00 Test Item Value Reference Range Interpretation Comme nts Glucose (test code = 107 mg/dL 65-99 H Fasting 2345-7) reference inter meenu For someone without known diabetes, a glu cose valuebetween 10 0 and 125 mg/dL is consis tent withprediabetes and should be confi rmed with afollow-up test . BUN (test code = 9 mg/dL 06-014-0) Creatinine (test code = 0.81 mg/dL 0.5-1.05 For patients >49 years of 2160-0) age, the refere nce limitfor Creati nine is approximately 1 3% higher for peopleident ified as -Tena n. EGFR Non-Afr. [place] 82 > OR = 60 (test code = 2775) mL/min/1.73m2 EGFR 95 > OR = 60 (test code = 35803-8) mL/min/1.73m2 BUN/creatinine ratio NOT APPLICABLE (calc) (test code = 3097-3) Sodium (test code = 140 mmol/L 164-352 2891-2) Potassium (test code = 4.0 mmol/L 3.5-5.3 2823-3) Chloride (test code = 105 mmol/L 98-110 5-0) CO2 (test code = 29 mmol/L 20-32 8-9) Calcium (test code = 9.6 mg/dL 8.6-10.4 62999-5) Protein (test code = 7.0 g/dL 6.1-8.1 2885-2) Albumin, S (test code = 4.0 g/dL 3.6-5.1 1751-7) Globulin, total (test 3.0 1.9- 3.7 g/dL code = 93127-9) (calc) Albumin/globulin ratio 1.3 1.0- 2.5 (test code = 1759-0) (calc) Total bilirubin (test 0.4 mg/dL 0.2-1.2 code = 1975-2) Alkaline phosphatase 123 U/L 37-153 (test code = 6768-6) AST (test code = 17 U/L 10-35 1920-8) ALT (test code = 19 U/L 6-29 1742-6) ALVA (test code = ALVA) FASTING: UNKNOWN RAC (test code = RAC) Performing Organization Information: Site ID: [id number] Name: [facility] Address: [address] [place] [id number] Director: Shyam Gregg Lab Interpretation Abnormal (test code = 23715-2) [id number] Test Item Value Reference Interpretation Comments Range Oxcarbazepine (test 22.0 8.0- 35.0 NO COLLE CTION DATE code = 74540-1) mcg/mL RECEIVED. WE HAVE USEDTHE E SPECIMEN WAS RECEIVED BY [facility] THE COLLECTION DATE. IF THISIS INCORRECT, MARY HERNANDEZ CONTACT CLIENT SERVICES.PHONE NUMBER: [phone] ALVA (test code = FASTING: UNKNOWN ALVA) RAC (test code = Performing RAC) Organization Information: Site ID: [id number] Name: [facility] [place] Address: [address] [place] [address] Dr Portillo [place] Director: Jarad Gomez M.D.,PhD [facility]
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
[2020-10-25] MEDS ORDERED: ACETAMINOPHEN 325 MG TABLET ONE (15:21)
[2020-10-25] MEDS ORDERED: IBUPROFEN 400 MG TAB ONE (15:21)
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
[2020-10-28 15:06] VITALS: BP 151/93; TEMP 97.8; O2SAT 100
== END 2020-10-25 16:05 | disposition home or self-care (01) ==
LOC: ER 13:58
DX: M54.2 Cervicalgia (principal); M25.511 Pain in right shoulder; V43.52XA Car driver injured in collision with other type car in traffic accident, initial encounter; Z88.5 Allergy status to narcotic agent; I10 Essential (primary) hypertension
CPT/HCPCS: 70450; 72125; 72128; 72131; 82947; 99284

== ENCOUNTER 2021-03-20 13:04 | Emergency (ER) | payer OTHER ==
--- OUTSIDE RECORDS SUMMARY | 2021-03-20 13:06 | XMS REPORT | Continuity of Care Document ---
:1965 Author Organization [facility] t Address [address] [place] [address] Dr. Pa. 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 6-10 Me thodi ar goiter ar goiter 00:00: st 00 Chronic Chronic Disease Active [place] myelopathy myelopathy 6-08 Me thodi 00:00: st 00 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 seizures 6-08 Method i with with 00:00: st aphasia aphasia 00 Lumbar Lumbar Disease Active [place] radiculopa radiculopa 6-08 Me thodi thy, thy, 00:00: st chronic chronic 00 Allergies, Adverse Reactions, Alerts Allergy Allergy Status Severity Reaction(s) Onset Inactive Treating Comm ents Source Name Type Date Date Clinician Sheeba Rodarte Active [place] ty to 2-24 Method[facility] adverse 00:00: st reaction 00 s to drug Social History Social Habit Start Date Stop Date Quantity Comments Source Alcohol intake 2019-04-19 2019-04-19 Current [facility] thodist 00:00:00 00:00:00 non-drinker of alcohol (finding) Tobacco use and 2019-04-19 2019-04-19 Never used Juaquin Carrion ethodist exposure 00:00:00 00:00:00 Sex [birth year] Juaquin Carrion ethodist 00:00:00 00:00:00 Smoking Status Start Date Stop Date Source Never smoker Reza Maximois t Medications Ordered Filled Start Stop Current Ordering [...] total) st 00 :00 by mouth daily. aspirin 325 2018- Yes 325mg QD Take 325 [place] MG tablet 6-11 mg by [facility] 12:55: mouth st 33 daily. pravastatin Yes 40mg QD Take 40 mg Reza (PRAVACHOL) 6-11 by mouth Meth michele 40 MG 12:55: daily. st tablet 33 cholecalcif Yes 1000U QD Take 1,000 Reza matilda, 6-11 Units by [facility] vitamin D3, 12:55: mouth st (VITAMIN 33 daily. D3) 1,000 unit tablet medroxyprog Yes Inject Jayne watson esterone 6-11 into the [facility] acetate 12:55: shoulder, st (DEPO-PROVE 33 thigh, or RA IM) buttocks. omeprazole Yes QD Take by Jayne watson (PriLOSEC) 4- mouth [facility] 40 MG 00:00: daily. st capsule 00 TRULICITY Yes INJECT Jayneto n 1.5 mg/0.5 03-05 UNDER THE Meth michele mL pen 00:00: SKIN [address] injector 00 EVERY WEEK carvedilol Yes 12.5mg 12.5 mg. H ougiorgi (COREG) 2-05 1/2 tab Methodi 12.5 MG 00:00: bid st tablet 00 lisinopril 2015-11 Yes 20mg QD Take 20 mg H ougiorgi (PRINIVIL,Z 2-24 by mouth Meth michele ESTRIL) 20 00:00: once st mg tablet 00 daily. Procedures This patient has no known procedures. Plan of Care Planned Activity Planned Date Details Comments Source Future Scheduled 2021-06-08 INFLUENZA VACCINE Joanna Nath Test 00:00:00 [code = INFLUENZA VACCINE] Future Scheduled 2015 BREAST CANCER Reza [facility]odist Test 00:00:00 SCREENING [code = BREAST CANCER SCREENING] Future Scheduled 2015 COLONOSCOPY SCREENING walter [facility] Test 00:00:00 [code = COLONOSCOPY SCREENING] Future Scheduled 2015 SHINGLES VACCINES [place] [facility] Test 00:00:00 (#1) [code = SHINGLES VACCINES (#1)] Future Scheduled 1986 Screening for [facility]odist Test 00:00:00 malignant neoplasm of cervix (procedure) [code = 884683528] Future Scheduled 1983 Hepatitis C screening Ho juan c [facility] Test 00:00:00 (procedure) [code = 764668619] Future Scheduled 1981 COVID-19 VACCINE (1) Paul rand [facility] Test 00:00:00 [code = COVID-19 VACCINE (1)] Encounters Start End Encounter Admission Attending Care Care Encounter Source Date/Time Date/Time Type Type Clinicians Facility Department ID 2020-03-05 2020-03-05 Outpatient SOHAIL STEVIE [facility] [id number] [place] 00:00:00 00:00:[address] 2019-04-17 2019-04-18 Outpatient ALEX [facility] [id number] [place] 00:00:00 00:00:00 ZAKIA [address] Results This patient has no known results.
[2021-03-20] MEDS ORDERED: LIDOCAINE 1% MPF 5 ML VIAL ONE (14:23)
[2021-03-20] MEDS ORDERED: BUPIVACAINE 0.5% PF 10 ML VIAL ONE (14:25)
[2021-03-20] MEDS ORDERED: PIPER/TAZO/NS 3.375gm 3.375 GM/100 ML BAG ONE (14:25)
[2021-03-20] MEDS ORDERED: FENTANYL CITR 100 MCG/2 ML ONE (14:25)
[2021-03-20] MEDS ORDERED: TETANUS & DIPHTHERIA TOX,ADULT 0.5 ML VIAL ONE (14:48)
[2021-03-20] MEDS ORDERED: LORazepam 2 MG/ML VIAL ONE (15:07)
--- NOTE | 2021-03-20 15:28 | ER ---
Nurse's Notes [facility] Name: Siemon Santa Age: 55 yrs Sex: Female : 1965 Arrival Date: 03/20/2021 Time: 13:07 Bed 17 Private MD: Matthew Lowe B Diagnosis: Puncture wound with foreign body of left little finger without damage to nail;Puncture wound with foreign body of left hand Presentation: 03/20 13:35 Chief complaint: Patient states: Hit left hand on palm tree and 2 large splinters are jl7 stuck, one in the pinky and one in the side of the palm. Coronavirus screen: Client denies travel out of the [place] in the last 14 days. At this time, the client does not indicate any symptoms associated with coronavirus-19. Ebola Screen: No symptoms or risks identified at this time. Initial Sepsis Screen: Does the patient meet any 2 criteria? No. Patient's initial sepsis screen is negative. Does the patient have a suspected source of infection? No. Patient's initial sepsis screen is negative. Risk Assessment: Do you want to hurt yourself or someone else? Patient reports no desire to harm self or others. Onset of symptoms was March 20, 2021. Care prior to arrival: None. 13:35 Method Of Arrival: Ambulatory [facility] 13:35 Acuity: VISHNU 4 jl7 Triage Assessment: 13:37 General: Appears in no apparent distress. uncomfortable, Behavior is calm, cooperative, jl7 appropriate for age. Pain: Complains of pain in left hand Pain currently is 7 out of 10 on a pain scale. 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 - Social history:: Smoking status: Patient denies any tobacco usage or history of. Screenin:45 Abuse screen: Denies threats or abuse. Nutritional screening: No deficits noted. ap3 Tuberculosis screening: No symptoms or risk factors identified. Fall Risk None identified. Assessment: 13:43 General: Appears uncomfortable, Behavior is cooperative, appropriate for age, restless. ap3 Pain: Complains of pain in medial aspect of left fingers and left little finger Pain currently is 10 out of 10 on a pain scale. Pain began suddenly, 1 hour ago. Neuro: Level of Consciousness is awake, alert, obeys commands, Oriented to person, place, time, situation, Gait is steady, Speech is normal. Cardiovascular: Capillary refill < 3 seconds. Respiratory: Airway is patent Respiratory effort is even, unlabored, Respiratory pattern is regular, symmetrical. GI: No signs and/or symptoms were reported involving the gastrointestinal system. : No signs and/or symptoms were reported regarding the genitourinary system. EENT: No signs and/or symptoms were reported regarding the EENT system. Derm:. Injury Description: Foreign body is located medial aspect of left fingers and left little finger. 16:26 General: AWAITING COMPLETION OF ANTIBIOTIC PRIOR TO DISCHARGE. ap3 Vital Signs: 13:35 BP 163 / 93; Pulse 74; Resp 16 S; Temp 97.5(TE); Pulse Ox 100% on R/A; Weight 72.57 kg; jl7 Height 5 ft. 5 in. (165.10 cm); Pain 7/10; 13:35 Body Mass Index 26.63 (72.57 kg, 165.10 cm) jl7 ED Course: 13:07 Patient arrived in ED. mr 13:08 Matthew Lowe MD is Private Physician. mr 13:36 Triage completed. jl7 13:37 Arm band placed on right wrist. jl7 13:38 Ada Montes RN is Primary Nurse. ap3 13:39 Yovana Kay PA is PHCP. cp 13:39 Yovana Jones MD is Attending Physician. cp 13:45 Patient has correct armband on for positive identification. Bed in low position. Call ap3 light in reach. Adult w/ patient. Pulse ox on. NIBP on. Door closed. Noise minimized. 14:00 Inserted saline lock: 22 gauge in right antecubital area, using aseptic technique. ap3 15:03 Nurse Practitioner and/or Physician Healthcare Educator to see patient. ap3 16:00 Assist provider with foreign body removal of a splinter from left HAND using tweezers, ap3 Set up for procedure. Performed by Yovana MCKINNON Dressed with DERRICK BANDAGE Patient tolerated poorly. 16:05 Orthoglass splint: Volar splint applied on left arm. [facility] 16:46 IV discontinued, intact, bleeding controlled, No redness/swelling at site. Pressure ap3 dressing applied. Administered Medications: 14:18 Drug: fentaNYL (PF) 25 mcg Route: IVP; Site: right antecubital; ap3 14:18 Drug: Zosyn (piperacillin-tazobactam) 3.375 grams Route: IVPB; Infused Over: 60 mins; ap3 Site: right antecubital; 15:03 Drug: Marcaine (bupivacaine) (0.5 %) 10 ml {Note: BY YOVANA KAY.} Volume: 10 ml; Route: ap3 Infiltration; 15:04 Drug: Lidocaine (1 %) 10 ml {Note: BY YOVANA KAY.} Volume: 5 ml; Route: Infiltration; ap3 15:04 Drug: Ativan (LORazepam) 0.5 mg Route: IVP; Site: right antecubital; ap3 15:18 Not Given (Patient Refused): Tetanus-Diphtheria Toxoid Adult 0.5 ml IM once cp Outcome: 15:27 Discharge ordered by MD. cp 16:47 Discharged to home ambulatory, with family. ap3 16:47 Condition: stable 16:47 Discharge instructions given to patient, Instructed on discharge instructions, follow up and referral plans. medication usage, Demonstrated understanding of instructions, follow-up care, medications, Prescriptions given X 3. 16:48 Patient left the ED. ap3 Signatures: Lennox Susana Yovana Osman PA PA cp Martinez, Maria [facility] Laura Birch RN RN jl7 Ada Montes RN RN ap3
--- NOTE | 2021-03-20 15:28 | EDPHYS ---
Physician Documentation [facility] Name: Simeon Santa Age: 55 yrs Sex: Female : 1965 Arrival Date: 03/20/2021 Time: 13:07 Bed 17 Private MD: Matthew Lowe B ED Physician Yovana Jones HPI: 03/20 14:00 This 55 yrs old Black Female presents to ER via Ambulatory with complaints of Foreign cp Body In hand. 14:00 The patient or guardian reports a puncture wound, from wood splinter, foreign body. cp 14:00 The complaints affect the left little finger and medial side left fifth metacarpal. cp 14:00 Context: resulted from striking palm tree. cp 14:00 Onset: The symptoms/episode began/occurred just prior to arrival. Associated signs and cp symptoms: Pertinent negatives: cyanosis distally, numbness distally. Severity of symptoms: in the emergency department the symptoms are unchanged, despite home interventions. 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 - Social history:: Smoking status: Patient denies any tobacco usage or history of. ROS: 14:05 MS/extremity: Positive for pain, puncture, of the left small finger and left hand. cp 14:05 Skin: Positive for foreign body left small finger and left hand. 14:05 Constitutional: Negative for fever. cp 14:05 Respiratory: Negative for cough, shortness of breath, wheezing. 14:05 Abdomen/GI: Negative for abdominal pain. 14:05 All other systems are negative. Exam: 14:10 Constitutional: The patient appears in no acute distress, alert, awake, non-toxic, well cp developed, well nourished, uncomfortable. 14:10 Head/Face: Normocephalic, atraumatic. cp 14:10 Cardiovascular: Rate: normal. 14:10 Respiratory: the patient does not display signs of respiratory distress, Respirations: normal, no use of accessory muscles, no retractions, labored breathing, is not present. 14:10 Skin: injury, that can be described as foreign body containing, without bleeding, mild cp swelling noted, puncture(s), that are deep, of the medial proximal phalanx left little finger and medial aspect left fifth metacarpal. Vital Signs: 13:35 BP 163 / 93; Pulse 74; Resp 16 S; Temp 97.5(TE); Pulse Ox 100% on R/A; Weight 72.57 kg; jl7 Height 5 ft. 5 in. (165.10 cm); Pain 7/10; 13:35 Body Mass Index 26.63 (72.57 kg, 165.10 cm) jl7 Procedures: 15:30 Foreign Body Removal: wood splinter, from the medial proximal phalanx left small finger cp and medial aspect left fifth metacarpal of hand, by using a hemostat, Dressinx4s were used to dress the wound, The patient tolerated the removal well, puncture wounds cleaned and irrigated. MDM: 13:40 Patient medically screened. cp 14:00 Differential diagnosis: foreign body, cellulitis. cp 15:26 Data reviewed: vital signs, nurses notes. cp 15:26 Counseling: I had a detailed discussion with the patient and/or guardian regarding: the cp historical points, exam findings, and any diagnostic results supporting the discharge/admit diagnosis, the need for outpatient follow up, a family practitioner, to return to the emergency department if symptoms worsen or persist or if there are any questions or concerns that arise at home. Response to treatment: the patient's symptoms have markedly improved after treatment, and as a result, I will discharge patient. Special discussion: I discussed in detail with the patient the higher chance of wound infection based on his presenting history. 03/20 13:58 Order name: IV; Complete Time: 14:01 cp 03/20 13:59 Order name: Dressing - Wound; Complete Time: 16:16 cp 03/20 13:59 Order name: Gloves, Sterile; Complete Time: 16:16 cp 03/20 13:59 Order name: Setup Suture Tray; Complete Time: 16:16 cp 03/20 15:18 Order name: Splint: volar type hand splint; Complete Time: 16:05 cp Administered Medications: 14:18 Drug: fentaNYL (PF) 25 mcg Route: IVP; Site: right antecubital; ap3 14:18 Drug: Zosyn (piperacillin-tazobactam) 3.375 grams Route: IVPB; Infused Over: 60 mins; ap3 Site: right antecubital; 15:03 Drug: Marcaine (bupivacaine) (0.5 %) 10 ml {Note: BY YOVANA PAGE.} Volume: 10 ml; Route: ap3 Infiltration; 15:04 Drug: Lidocaine (1 %) 10 ml {Note: BY YOVANA PAGE.} Volume: 5 ml; Route: Infiltration; ap3 15:04 Drug: Ativan (LORazepam) 0.5 mg Route: IVP; Site: right antecubital; ap3 15:18 Not Given (Patient Refused): Tetanus-Diphtheria Toxoid Adult 0.5 ml IM once cp Disposition: 15:35 Chart complete. cp Disposition: 03/20/21 15:27 Discharged to Home. Impression: Puncture wound with foreign body of left little finger without damage to nail, Puncture wound with foreign body of left hand. - Condition is Stable. - Discharge Instructions: Puncture Wound. - Prescriptions for Augmentin 875- 125 mg Oral Tablet - take 1 tablet by ORAL route every 12 hours for 10 days; 20 tablet. Ultracet 37.5- 325 mg Oral Tablet - take 1 tablet by ORAL route every 6 hours - for up to 5 days; do not exceed 8 tablets per day.; 15 tablet. Bactrim DS 800- 160 mg Oral Tablet - take 1 tablet by ORAL route every 12 hours for 10 days; 20 tablet. - Medication Reconciliation Form, Thank You Letter, Antibiotic Education, Prescription Opioid Use form. - Follow up: Private Physician; When: 1 - 2 days; Reason: Wound Recheck. - Problem is new. - Symptoms have improved. Addendum: 03/22/2021 07:41 Co-signature as Attending Physician, Yovana Jones MD I agree with the assessment and c delgado plan of care. Signatures: Yovana Jones MD MD cha Page, Corey, PA PA cp Leal, Jahala, RN RN jl7 Ada Montes RN RN ap3 Corrections: (The following items were deleted from the chart) 03/20 16:48 15:27 03/20/2021 15:27 Discharged to Home. Impression: Puncture wound with foreign body ap3 of left little finger without damage to nail; Puncture wound with foreign body of left hand. Condition is Stable. Forms are Medication Reconciliation Form, Thank You Letter, Antibiotic Education, Prescription Opioid Use. Follow up: Private Physician; When: 1 - 2 days; Reason: Wound Recheck. Problem is new. Symptoms have improved. cp 03/21 00:25 00:23 MS/extremity: Positive for pain, puncture, of the left small finger and left cp hand, cp 00:25 00:23 Skin: Positive for foreign body left small finger and left hand, cp cp
[2021-03-20 18:44] VITALS: BP 163/93; TEMP 97.5; O2SAT 100
== END 2021-03-20 16:48 | disposition home or self-care (01) ==
LOC: ER 13:04
DX: S61.442A Puncture wound with foreign body of left hand, initial encounter (principal); W22.8XXA Striking against or struck by other objects, initial encounter; I10 Essential (primary) hypertension; Z88.5 Allergy status to narcotic agent
CPT/HCPCS: 96375; 96374; 99284; J3010; J2543; 90714

== ENCOUNTER 2023-08-12 13:54 | Emergency (ER) | payer OTHER ==
--- OUTSIDE RECORDS SUMMARY | 2023-08-12 13:58 | XMS REPORT | Continuity of Care Document ---
:1965 Author Organization [facility] t Address [address] [place] [address] Care Team Providers Name Role Phone Matthew Lowe MD Primary Care Physician Stevie Yoon MD Attending Clinician Khanh Garcia MA Attending Clinician Unavailable ZAKIA JOHNSON Attending Clinician Unavailable ZAKIA JOHNSON Admitting Clinician Unavailable Payers Payer Name Policy Type Policy Number Effective Date Expiration Date S ource Problems Condition Condition Condition Status Onset Resolution Last Treating Co mments Source Name Details Category Date Date Treatment Clinician Date Nontoxic Nontoxic Disease Active [facility] di multinodul multinodul 04-17 ar goiter ar goiter 00:00: [facility] 00 l Chronic Chronic Disease Active [facility] myelopathy myelopathy 04-15 00:00: [facility]osp[facility] 00 l 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 seizures 04-15 with with 00:00: Hospita aphasia aphasia 00 l Lumbar Lumbar Disease Active [facility] radiculopa radiculopa 04-15 thy, thy, 00:00: Hospita chronic chronic 00 l Allergies, Adverse Reactions, Alerts Allergy Allergy Status Severity Reaction(s) Onset Inactive Treating Comm ents Source Name Type Date Date Clinician Sheeba Rodarte Active [facility] to [address] [facility] adverse 00:00: [facility]ospita reaction 00 l s to drug Social History Social Habit Start Date Stop Date Quantity Comments Source [facility] History of Social 2023-02-09 2023-02-[address] function 00:00:00 00:00:00 Hospital Alcohol intake 2022-09-01 2022-09-01 Current [facility] 00:00:00 00:00:00 non-drinker of Hospital alcohol (finding) Tobacco use and 2017-01-01 2017-01-01 Smokeless [facility] exposure 00:00:00 00:00:00 tobacco non-user Hospital Sex Ass[birth year] At [birth year] [facility] 00:00:00 00:[facility]:00 [facility] Smoking Status Start Date Stop Date Source Never smoked tobacco [facility] Medications Ordered Filled Start Stop Current Ordering Indication Dosage Frequency Signature Comments Components Source Medication Medication Date Date Medication? Clinician (SIG) Name Name medroxyprog 2021-11- No Inject [facility] esterone 0-25 10-[address] acetate 13:33: 00:00 shoulder, [facility] (DEPO-PROVE 46 :00 thigh, or l RA IM) buttocks. medroxyprog 2021-11- No Inject [facility] esterone 0-25 10-[address] acetate 13:33: 00:00 shoulder, [facility] (DEPO-PROVE 46 :00 thigh, or l RA IM) buttocks. medroxyprog 2021-11- No Inject [facility] esterone 0-25 10-[address] acetate 13:33: 00:00 shoulder, [facility] (DEPO-PROVE 46 :00 thigh, or l RA IM) buttocks. medroxyprog 2021-11- No Inject [facility] esterone 0-25 10-[address] acetate 13:33: 00:00 shoulder, [facility] (DEPO-PROVE 46 :00 thigh, or l RA IM) buttocks. medroxyprog 2021-11- No Inject [facility] esterone 0-25 10-[address] acetate 13:33: 00:00 shoulder, [facility] (DEPO-PROVE 46 :00 thigh, or l RA IM) buttocks. medroxyprog 2021-11- No Inject [facility] esterone 0-25 10-[address] acetate 13:33: 00:00 shoulder, [facility] (DEPO-PROVE 46 :00 thigh, or l RA IM) buttocks. OXcarbazepi 2021-11 Yes [id number] TAKE 1&1/2 [facility] ne 0-[address] (TRILEPTAL) 00:00: MOUTH Hospi ta 300 MG 00 EVERY 12 l tablet HOURS OXcarbazepi 2021- Yes [id number] TAKE 1&1/2 [facility] 0-[address] (TRILEPTAL) 00:00: MOUTH [facility] ta 300 MG 00 EVERY 12 l tablet HOURS OXcarbazepi 2021- Yes [id number] TAKE 1&1/2 [facility] ne 0-[address] (TRILEPTAL) 00:00: MOUTH [facility] ta 300 MG 00 EVERY 12 l tablet HOURS OXcarbazepi 2021- Yes [id number] TAKE 1&1/2 [facility] ne 0-[address] (TRILEPTAL) 00:00: MOUTH [facility] ta 300 MG 00 EVERY 12 l tablet HOURS OXcarbazepi 2021- Yes [id number] TAKE 1&1/2 [facility] ne 0-[address] (TRILEPTAL) 00:00: MOUTH [facility] ta 300 MG 00 EVERY 12 l tablet HOURS OXcarbazepi 2021- Yes [id number] TAKE 1&1/2 [facility] ne 0-[address] (TRILEPTAL) 00:00: MOUTH [facility] 300 MG 00 EVERY 12 l tablet HOURS amLODIPine 2022-0 Yes 5mg QD Take 1 [facility] (NORVASC) 5 8-22 tablet (5 st mg tablet 00:00: mg total) [facility] 00 by mouth l daily. amLODIPine 2022-0 Yes 5mg QD Take 1 [facility] (NORVASC) 5 8-22 tablet (5 st mg tablet 00:00: mg total) [facility] 00 by mouth l daily. amLODIPine 2022-0 Yes 5mg QD Take 1 [facility] di (NORVASC) 5 8-22 tablet (5 st mg tablet 00:00: mg total) [facility] 00 by mouth l daily. amLODIPine 2022-0 Yes 5mg QD Take 1 [facility] di (NORVASC) 5 8-22 tablet (5 st mg tablet 00:00: mg total) [facility] 00 by mouth l daily. amLODIPine 2022-0 Yes 5mg QD Take 1 [facility] di (NORVASC) 5 8-22 tablet (5 st mg tablet 00:00: mg total) [facility] 00 by mouth l daily. amLODIPine 2021-0 Yes 5mg QD Take 1 [facility] di (NORVASC) 5 8-22 tablet (5 st mg tablet 00:00: mg total) [facility] 00 by mouth l daily. diazePAM 2021-2- No 1 tab 30 Meth [facility]hele (Valium) 5 3-24 04-[address] MG tablet 00:00: 04:59 to mri. [facility] 00 :00 May repeat l if needed diazePAM 2021-0 2021- No 1 tab 30 Meth michele (Valium) 5 3-24 04-[address] MG tablet 00:00: 04:59 to mri. [facility] 00 :00 May repeat l if needed diazePAM 2021-0 2021- No 1 tab 30 Meth michele (Valium) 5 3-24 04-[address] MG tablet 00:00: 04:59 to mri. [facility] 00 :00 May repeat l if needed diazePAM 2021-0 2021- No 1 tab 30 Meth michele (Valium) 5 3-24 04-[address] MG tablet 00:00: 04:59 to mri. [facility] 00 :00 May repeat l if needed diazePAM 2021-0 2021- No 1 tab 30 Meth michele (Valium) 5 3-24 04-[address] MG tablet 00:00: 04:59 to mri. [facility] 00 :00 May repeat l if needed meloxicam 2-0 Yes [id number] 15mg QD TAKE 1 [facility] (MOBIC) 15 - 4108 TABLET (15 st mg tablet 00:00: MG TOTAL) [facility] 00 BY MOUTH l DAILY. meloxicam 2-0 Yes [id number] 15mg QD TAKE 1 [facility] (MOBIC) 15 3- 4108 TABLET (15 st mg tablet 00:00: MG TOTAL) [facility] 00 BY MOUTH l DAILY. meloxicam 2022-0 Yes [id number] 15mg QD TAKE 1 [facility] (MOBIC) 15 - 4108 TABLET (15 st mg tablet 00:00: MG TOTAL) [facility] 00 BY MOUTH l DAILY. meloxicam 2022-0 Yes [id number] 15mg QD TAKE 1 [facility] (MOBIC) 15 3- 4108 TABLET (15 st mg tablet 00:00: MG TOTAL) [facility] 00 BY MOUTH l DAILY. meloxicam 2022-0 Yes [id number] 15mg QD TAKE 1 [facility] (MOBIC) 15 01-27 4108 TABLET (15 st mg tablet 00:00: MG TOTAL) [facility] 00 BY MOUTH l DAILY. meloxicam 2022-0 Yes [id number] 15mg QD TAKE 1 [facility] (MOBIC) 15 01-27 4108 TABLET (15 st mg tablet 00:00: MG TOTAL) [facility] 00 BY MOUTH l DAILY. aspirin 2022-0 Yes 81mg QD Take 81 mg Meth michele (ECOTRIN) 2-[address] 81 MG 13:23: daily. Hospita enteric 05 l coated tablet olmesartan 2022-0 Yes 20mg QD Take 20 mg M [facility] (BENICAR) 2-[address] 20 MG 13:23: daily. Hospita tablet 05 l B 2021-0 Yes 1{tbl} QD Take 1 [facility] complex-vit 2-[address] gutierres 13:23: mouth Hospita C-folic 05 daily. l acid (FOLBEE PLUS 5 MG) 5 mg tablet per tablet aspirin 2-0 Yes 81mg QD Take 81 mg Meth michele (ECOTRIN) 2-[address] 81 MG 13:23: daily. Hospita enteric 05 l coated tablet olmesartan 2-0 Yes 20mg QD Take 20 mg M ethodi (BENICAR) 2-[address] 20 MG 13:23: daily. Hospita tablet 05 l B 2021-0 Yes 1{tbl} QD Take 1 [facility] complex-vit 2-[address] gutierres 13:23: mouth Hospita C-folic 05 daily. l acid (FOLBEE PLUS 5 MG) 5 mg tablet per tablet aspirin 2022-0 Yes 81mg QD Take 81 mg Meth michele (ECOTRIN) 2-[address] 81 MG 13:23: daily. Hospita enteric 05 l coated tablet olmesartan 2022-0 Yes 20mg QD Take 20 mg M ethodi (BENICAR) 2-[address] 20 MG 13:23: daily. Hospita tablet 05 l B 2021-0 Yes 1{tbl} QD Take 1 [facility] complex-vit 2-[address] gutierres 13:23: mouth [facility]ospita C-folic 05 daily. l acid (FOLBEE PLUS 5 MG) 5 mg tablet per tablet aspirin 2-0 Yes 81mg QD Take 81 mg Meth mic[facility] (ECOTRIN) 2-[address] 81 MG 13:23: daily. [facility]ospita enteric 05 l coated tablet olmesartan 2-0 Yes 20mg QD Take 20 mg M [facility]i (BENICAR) 2-[address] 20 MG 13:23: daily. Hospita tablet 05 l B 2021-0 Yes 1{tbl} QD Take 1 [facility] complex-vit 2-[address] gutierres 13:23: mouth [facility]ospita C-folic 05 daily. l acid (FOLBEE PLUS 5 MG) 5 mg tablet per tablet aspirin 2021-0 Yes 81mg QD Take 81 mg [facility] mic[facility] (ECOTRIN) 2-[address] 81 MG 13:23: daily. [facility]ospita enteric 05 l coated tablet olmesartan 2021-0 Yes 20mg QD Take 20 mg M [facility]i (BENICAR) 2-[address] 20 MG 13:23: daily. Hospita tablet 05 l B 0 Yes 1{tbl} QD Take 1 [facility] complex-vit 2-[address] gutierres 13:23: mouth [facility]ospita C-folic 05 daily. l acid (FOLBEE PLUS 5 MG) 5 mg tablet per tablet aspirin 2021-0 Yes 81mg QD Take 81 mg Meth michele (ECOTRIN) 2-[address] 81 MG 13:23: daily. Hospita enteric 05 l coated tablet olmesartan 2021-0 Yes 20mg QD Take 20 mg M [facility]i (BENICAR) 2-[address] 20 MG 13:23: daily. Hospita tablet 05 l B 0 Yes 1{tbl} QD Take 1 [facility] complex-vit 2-[address] gutierres 13:23: mouth [facility]ospita C-folic 05 daily. l acid (FOLBEE PLUS 5 MG) 5 mg tablet per tablet aspirin 325 2021-0 2022- No 325mg QD Take 325 [facility] MG tablet 2-24 02-[address] 13:19: 00:00 mouth Hospita 47 :00 daily. l aspirin 325 2021-0 2021- No 325mg QD Take 325 [facility] MG tablet 2-24 02-[address] 13:19: 00:00 mouth [facility]ospita 47 :00 daily. l aspirin 325 2021-2021- No 325mg QD Take 325 [facility] MG tablet 2-24 02-[address] 13:19: 00:00 mouth [facility]ospita 47 :00 daily. l aspirin 325 2021-0 2021- No 325mg QD Take 325 [facility] MG tablet 2-24 02-[address] 13:19: 00:00 mouth [facility]ospita 47 :00 daily. l aspirin 325 2021-0 2021- No 325mg QD Take 325 [facility] MG tablet 2-24 02-[address] 13:19: 00:00 mouth Hospita 47 :00 daily. l OXcarbazepi 2021- No [id number] TAKE 1&1/2 [facility] ne 01-01-[address] (TRILEPTAL) 00:00: 00:00 MOUTH [facility] 300 MG 00 :00 EVERY 12 l tablet HOURS methocarbam 2021- No [id number] 500mg Q.[id number] Take 1 [facility] oL 01-[id number] (Robaxin) 00:00: 00:00 3D (500 mg [facility] 500 MG 00 :00 total) by l tablet mouth 3 (three) times a day. OXcarbazepi 2021- No [id number] TAKE 1&1/2 [facility] ne 01-01 10-[address] (TRILEPTAL) 00:00: 00:00 MOUTH [facility] 300 MG 00 :00 EVERY 12 l tablet HOURS methocarbam 2021- No [id number] 500mg Q.[id number] Take 1 [facility] oL 2-31 08- [id number] (Robaxin) 00:00: 00:00 3D (500 mg [facility] 500 MG 00 :00 total) by l tablet mouth 3 (three) times a day. OXcarbazepi 2021- No [id number] TAKE 1&1/2 [facility] ne 2- 10-[address] (TRILEPTAL) 00:00: 00:00 MOUTH [facility] 300 MG 00 :00 EVERY 12 l tablet HOURS methocarbam 2021- No [id number] 500mg Q.[id number] Take 1 [facility] oL 2-09-[id number] (Robaxin) 00:00: 00:00 3D (500 mg [facility] 500 MG 00 :00 total) by l tablet mouth 3 (three) times a day. OXcarbazepi 2021- No [id number] TAKE 1&1/2 [facility] ne 01-[address] (TRILEPTAL) 00:00: 00:00 MOUTH [facility] 300 MG 00 :00 EVERY 12 l tablet HOURS methocarbam 2021- No [id number] 500mg Q.[id number] Take 1 [facility] oL 01-[id number] (Robaxin) 00:00: 00:00 3D (500 mg [facility] 500 MG 00 :00 total) by l tablet mouth 3 (three) times a day. OXcarbazepi 2021- No [id number] TAKE 1&1/2 [facility] ne 01-[address] (TRILEPTAL) 00:00: 00:00 MOUTH [facility] 300 MG 00 :00 EVERY 12 l tablet HOURS methocarbam 2021- No [id number] 500mg Q.[id number] Take 1 [facility] oL 01-[id number] (Robaxin) 00:00: 00:00 3D (500 mg [facility] 500 MG 00 :00 total) by l tablet mouth 3 (three) times a day. OXcarbazepi 2021- No [id number] TAKE 1&1/2 [facility] ne 209-[address] (TRILEPTAL) 00:00: 00:00 MOUTH [facility] 300 MG 00 :00 EVERY 12 l tablet HOURS methocarbam 2021- No [id number] 500mg Q.[id number] Take 1 [facility] oL 2-24 09-[id number] (Robaxin) 00:00: 00:00 3D (500 mg [facility] 500 MG 00 :00 total) by l tablet mouth 3 (three) times a day. meloxicam 2021-0 2021- No [id number] 15mg QD Take 1 [facility] (MOBIC) 15 01-01 4108 tablet (15 st mg tablet 00:00: 00:00 mg total) Ho spita 00 :00 by mouth l daily. meloxicam 2021-0 2021- No [id number] 15mg QD Take 1 [facility] (MOBIC) 15 01-01 4108 tablet (15 st mg tablet 00:00: 00:00 mg total) Ho spita 00 :00 by mouth l daily. meloxicam 2021-0 2021- No [id number] 15mg QD Take 1 [facility] (MOBIC) 15 01-01 4108 tablet (15 st mg tablet 00:00: 00:00 mg total) Ho spita 00 :00 by mouth l daily. meloxicam 2021-0 2021- No [id number] 15mg QD Take 1 [facility] (MOBIC) 15 01-01 4108 tablet (15 st mg tablet 00:00: 00:00 mg total) Ho spita 00 :00 by mouth l daily. meloxicam 2021-0 2021- No [id number] 15mg QD Take 1 [facility] (MOBIC) 15 01-01 4108 tablet (15 st mg tablet 00:00: 00:00 mg total) Ho spita 00 :00 by mouth l daily. OXcarbazepi 2021-0 2021- No [id number] TAKE 1&1/2 [facility] ne 12-[address] (TRILEPTAL) 00:00: 00:00 MOUTH [facility] 300 MG 00 :00 EVERY 12 l tablet HOURS OXcarbazepi 2021-0 2- No [id number] TAKE 1&1/2 [facility] ne 12-[address] (TRILEPTAL) 00:00: 00:00 MOUTH [facility] 300 MG 00 :00 EVERY 12 l tablet HOURS OXcarbazepi 2-0 2- No [id number] TAKE 1&1/2 [facility] ne 12-01-[address] (TRILEPTAL) 00:00: 00:00 MOUTH [facility] 300 MG 00 :00 EVERY 12 l tablet HOURS OXcarbazepi 2021- No [id number] TAKE 1&1/2 [facility] ne 12-[address] (TRILEPTAL) 00:00: 00:00 MOUTH [facility] 300 MG 00 :00 EVERY 12 l tablet HOURS OXcarbazepi 2021- No [id number] TAKE 1&1/2 [facility] ne 12-[address] (TRILEPTAL) 00:00: 00:00 MOUTH [facility] 300 MG 00 :00 EVERY 12 l tablet HOURS OXcarbazepi 2020-11- No [id number] TAKE 1 & [facility] ne 012-01 1/[address] (TRILEPTAL) 00:00: 00:00 q12 Hos[facility] ta 300 MG 00 :00 l tablet OXcarbazepi 2020-11- No [id number] TAKE 1 & [facility] ne 012-01 1/[address] (TRILEPTAL) 00:00: 00:00 q12 Hos[facility] ta 300 MG 00 :00 l tablet OXcarbazepi 2020-11- No [id number] TAKE 1 & [facility] ne 012-01 1/[address] (TRILEPTAL) 00:00: 00:00 q12 Hospi ta 300 MG 00 :00 l tablet OXcarbazepi 2020-11- No [id number] TAKE 1 & [facility] ne 012-01 1/[address] (TRILEPTAL) 00:00: 00:00 q12 Hospi ta 300 MG 00 :00 l tablet OXcarbazepi 2020-11- No [id number] TAKE 1 & [facility] ne 012-01 1/[address] (TRILEPTAL) 00:00: 00:00 q12 Hos[facility] ta 300 MG 00 :00 l tablet tiZANidine 2021- No [id number] TAKE 1 [facility] (ZANAFLEX) 05-[address] 2 MG tablet 00:00: 00:00 MOUTH [facility] 00 :00 TWICE A l DAY NEEDED FOR MUSCLE SPASM tiZANidine 2021- No [id number] TAKE 1 [facility] (ZANAFLEX) 05-[address] 2 MG tablet 00:00: 00:00 MOUTH [facility] 00 :00 TWICE A l DAY NEEDED FOR MUSCLE SPASM tiZANidine 2021- No [id number] TAKE 1 [facility] (ZANAFLEX) 05-[address] 2 MG tablet 00:00: 00:00 MOUTH [facility] 00 :00 TWICE A l DAY NEEDED FOR MUSCLE SPASM tiZANidine 2021- No [id number] TAKE 1 [facility] (ZANAFLEX) 05-[address] 2 MG tablet 00:00: 00:00 MOUTH [facility] 00 :00 TWICE A l DAY NEEDED FOR MUSCLE SPASM tiZANidine 2021- No [id number] TAKE 1 [facility] (ZANAFLEX) 05-[address] 2 MG tablet 00:00: 00:00 MOUTH [facility] 00 :00 TWICE A l DAY NEEDED FOR MUSCLE SPASM meloxicam 2021- No [id number] TAKE 1 [facility] (MOBIC) 15 04-[address] mg tablet 00:00: 00:00 MOUTH Hospit a 00 :00 EVERY DAY l meloxicam 0 2021- No [id number] TAKE 1 [facility] (MOBIC) 15 04-[address] mg tablet 00:00: 00:00 MOUTH Hospit a 00 :00 EVERY DAY l meloxicam 0 2021- No [id number] TAKE 1 [facility] (MOBIC) 15 04-[address] mg tablet 00:00: 00:00 MOUTH Hospit a 00 :00 EVERY DAY l meloxicam 0 2021- No [id number] TAKE 1 [facility] (MOBIC) 15 04-02-[address] mg tablet 00:00: 00:00 MOUTH Hospit a 00 :00 EVERY DAY l meloxicam 0 2021- No [id number] TAKE 1 [facility] (MOBIC) 15 04-02-[address] mg tablet 00:00: 00:00 MOUTH Hospit a 00 :00 EVERY DAY l levothyroxi Yes 75ug QD Take 75 Met hodi ne 4-[address] (SYNTHROID) 12:47: mouth Hospi ta 75 mcg 41 daily. l tablet levothyroxi 0 Yes 75ug QD Take 75 [facility]odi ne 4-[address] (SYNTHROID) 12:47: mouth Hospi ta 75 mcg 41 daily. l tablet levothyroxi 2020-0 Yes 75ug QD Take 75 Met [facility]odi ne 4-[address] (SYNTHROID) 12:47: mouth Hospi ta 75 mcg 41 daily. l tablet levothyroxi 2020-0 Yes 75ug QD Take 75 [facility]odi ne 4-[address] (SYNTHROID) 12:47: mouth Hos[facility] ta 75 mcg 41 daily. l tablet levothyroxi 2020-0 Yes 75ug QD Take 75 Met [facility]odi ne 4-[address] (SYNTHROID) 12:47: mouth Hospi ta 75 mcg 41 daily. l tablet levothyroxi 2020-0 Yes 75ug QD Take 75 Met [facility]odi ne 4-[address] (SYNTHROID) 12:47: mouth Hospi ta 75 mcg 41 daily. l tablet diclofenac 2020-0 Yes [id number] Q.25D Apply [facility] (VOLTAREN) [address] 1 % gel 00:00: 4 (four) Hospit a 00 times a l day. diclofenac 2020-0 Yes [id number] Q.25D Apply [facility] (VOLTAREN) 03-[address] 1 % gel 00:00: 4 (four) Hospit a 00 times a l day. diclofenac 2020-0 Yes [id number] Q.25D Apply [facility] (VOLTAREN) 03-[address] 1 % gel 00:00: 4 (four) Hospit a 00 times a l day. diclofenac 2020-0 Yes [id number] Q.25D Apply [facility] (VOLTAREN) [address] 1 % gel 00:00: 4 (four) Hospit a 00 times a l day. diclofenac 2020-0 Yes [id number] Q.25D Apply [facility] (VOLTAREN) 4-[address] 1 % gel 00:00: 4 (four) Hospit a 00 times a l day. diclofenac 2020-0 Yes [id number] Q.25D Apply [facility] (VOLTAREN) [address] 1 % gel 00:00: 4 (four) Hospit a 00 times a l day. pravastatin 2019-0 Yes 40mg QD Take 40 mg [facility] (PRAVACHOL) 6-[address] 40 MG 12:55: daily. Hospita tablet 33 l cholecalcif 2019-0 Yes 1000U QD Take 1,000 [facility] matilda, 6-[address] vitamin D3, 12:55: mouth Hospi ta (VITAMIN 33 daily. l D3) 1,000 unit tablet pravastatin 2019-0 Yes 40mg QD Take 40 mg [facility] (PRAVACHOL) 6-[address] 40 MG 12:55: daily. Hospita tablet 33 l cholecalcif 2019-0 Yes 1000U QD Take 1,000 [facility] matilda, 6-[address] vitamin D3, 12:55: mouth Hospi ta (VITAMIN 33 daily. l D3) 1,000 unit tablet pravastatin 2019-0 Yes 40mg QD Take 40 mg [facility] (PRAVACHOL) 6-[address] 40 MG 12:55: daily. Hospita tablet 33 l cholecalcif 2019-0 Yes 1000U QD Take 1,000 [facility] matilda, 6-[address] vitamin D3, 12:55: mouth Hospi ta (VITAMIN 33 daily. l D3) 1,000 unit tablet pravastatin 2019-0 Yes 40mg QD Take 40 mg [facility] (PRAVACHOL) 6-[address] 40 MG 12:55: daily. [facility]ospita tablet 33 l cholecalcif 2019-0 Yes 1000U QD Take 1,000 [facility] matilda, 6-[address] vitamin D3, 12:55: mouth Hospi ta (VITAMIN 33 daily. l D3) 1,000 unit tablet pravastatin 2019-0 Yes 40mg QD Take 40 mg [facility] (PRAVACHOL) 6-[address] 40 MG 12:55: daily. Hospita tablet 33 l cholecalcif 2019-0 Yes 1000U QD Take 1,000 [facility] matilda, 6-[address] vitamin D3, 12:55: mouth Hospi ta (VITAMIN 33 daily. l D3) 1,000 unit tablet pravastatin 2019-0 Yes 40mg QD Take 40 mg [facility] (PRAVACHOL) 6-[address] 40 MG 12:55: daily. Hospita tablet 33 l cholecalcif 2019-0 Yes 1000U QD Take 1,000 [facility] matilda, 6-[address] vitamin D3, 12:55: mouth Hospi ta (VITAMIN 33 daily. l D3) 1,000 unit tablet omeprazole 2019-0 Yes QD Take by [facility] michele (PriLOSEC) 4-[address] 40 MG 00:00: daily. Hospita capsule 00 l omeprazole 2019-0 Yes QD Take by [facility] mic[facility] (PriLOSEC) 4-[address] 40 MG 00:00: daily. Hospita capsule 00 l omeprazole 2019-0 Yes QD Take by [facility] mic[facility] (PriLOSEC) 4-[address] 40 MG 00:00: daily. Hospita capsule 00 l omeprazole 2019-0 Yes QD Take by [facility] mic[facility] (PriLOSEC) 4-[address] 40 MG 00:00: daily. Hospita capsule 00 l omeprazole 2019-0 Yes QD Take by [facility] mic[facility] (PriLOSEC) 4-[address] 40 MG 00:00: daily. Hospita capsule 00 l omeprazole 2019-0 Yes QD Take by [facility] mic[facility] (PriLOSEC) 4-[address] 40 MG 00:00: daily. Hospita capsule 00 l TRULICITY 2017-0 2022- No .75mg 0.75 mg. Me thodi 1.5 mg/0.5 4-28 10-25 st mL pen 00:00: 00:00 Hospita injector 00 :00 l TRULICITY 2017-0 2022- No .75mg 0.75 mg. Me thodi 1.5 mg/0.5 4-28 10-25 st mL pen 00:00: 00:00 Hospita injector 00 :00 l TRULICITY 2017-0 2022- No .75mg 0.75 mg. Me thodi 1.5 mg/0.5 4-28 10-25 st mL pen 00:00: 00:00 Hospita injector 00 :00 l TRULICITY 2018-0 2022- No .75mg 0.75 mg. Me thodi 1.5 mg/0.5 4-28 10-25 st mL pen 00:00: 00:00 Hospita injector 00 :00 l TRULICITY 2017-0 2022- No .75mg 0.75 mg. Me thodi 1.5 mg/0.5 4-28 10-25 st mL pen 00:00: 00:00 Hospita injector 00 :00 l TRULICITY 2021- No .75mg 0.75 mg. Me thodi 1.5 mg/0.5 03-05 10-25 st mL pen 00:00: 00:00 Hospita injector 00 :00 l carvedilol Yes 12.5mg 1 tablet M [facility] (COREG) 2-05 (12.[address] 12.5 MG 00:00: total). Hospita tablet 00 l carvedilol Yes 12.5mg 1 tablet M [facility]i (COREG) 2-05 (12.[address] 12.5 MG 00:00: total). Hospita tablet 00 l carvedilol Yes 12.5mg 1 tablet M [facility]i (COREG) 2-05 (12.[address] 12.5 MG 00:00: total). Hospita tablet 00 l carvedilol Yes 12.5mg 1 tablet M [facility]i (COREG) 2-05 (12.[address] 12.5 MG 00:00: total). Hospita tablet 00 l carvedilol Yes 12.5mg 1 tablet M [facility]i (COREG) 2-05 (12.[address] 12.5 MG 00:00: total). Hospita tablet 00 l carvedilol Yes 12.5mg 1 tablet M [facility]i (COREG) 2-05 (12.[address] 12.5 MG 00:00: total). Hospita tablet 00 l lisinopril 2015-11 No 20mg QD Take 20 mg [facility] (PRINIVIL,Z 01-01-[address] ESTRIL) 20 00:00: 00:00 once Hospit a mg tablet 00 :00 daily. l lisinopril 2015-11- No 20mg QD Take 20 mg [facility] (PRINIVIL,Z 2-[address] ESTRIL) 20 00:00: 00:00 once Hospit a mg tablet 00 :00 daily. l lisinopril 2015-11- No 20mg QD Take 20 mg [facility] (PRINIVIL,Z 2-[address] ESTRIL) 20 00:00: 00:00 once Hospit a mg tablet 00 :00 daily. l lisinopril 2015-11- No 20mg QD Take 20 mg [facility] (PRINIVIL,Z 01-[address] ESTRIL) 20 00:00: 00:00 once Hospit a mg tablet 00 :00 daily. l lisinopril 2015-11 No 20mg QD Take 20 mg [facility] (PRINIVIL,Z 01-[address] ESTRIL) 20 00:00: 00:00 once Hospit a mg tablet 00 :00 daily. l Vital Signs Vital Name Observation Time Observation Value Comments Source Systolic blood 2022-09-01 18:08:00 162 mm[Hg] [facility] pressure Diastolic blood 2022-09-01 18:08:00 92 mm[Hg] [facility] pressure Heart rate 2022-09-01 18:08:00 72 /min [facility] Body height 2022-09-01 18:08:00 162.6 cm [facility] Body weight 2022-09-01 18:08:00 77.111 kg [facility] BMI 2022-09-01 18:08:00 29.18 kg/m2 [facility] Body temperature 2022-01-01 19:23:00 36.17 [facility] Procedures Procedure Date / Time Performing Clinician Source Performed BASIC METABOLIC PANEL 2022-09-01 19:18:00 Stevie Yoon [facility] ESTIMATED GFR 2022-09-01 19:18:00 Stevie Yoon spital OXCARBAZEPINE LEVEL 2022-09-01 19:18:00 Stevie Yoon [facility] MRI LUMBAR SPINE WO 2022-01-29 14:22:04 Stevie Yoon [facility] CONTRAST MRI CERVICAL SPINE WO 2022-01-29 14:00:52 Stevie Yoon [facility] CONTRAST OXCARBAZEPINE LEVEL 2022-01-01 20:02:00 Stevie Yoon [facility] COMPREHENSIVE METABOLIC 2022-01-01 20:02:00 Stevie Yoon [facility] PANEL ESTIMATED GFR 2022-01-01 20:02:00 Stevie Yoon [facility] Plan of Care Planned Activity Planned Date Details Comments Source Future Scheduled 2023-08-12 Screening for [facility] Test 13:13:36 malignant neoplasm of colon (procedure) [code = [id number]] Future Scheduled 2023-08-12 Screening for [facility] Test 13:13:36 malignant neoplasm of colon (procedure) [code = [id number]] Future Scheduled 2023-08-12 Screening for [facility] Test 13:13:36 malignant neoplasm of colon (procedure) [code = [id number]] Future Scheduled 2023-08-12 Hepatitis C screening [facility] Test 13:13:36 (procedure) [code = [id number]] Future Scheduled 2023-08-12 Screening for [facility] Test 13:13:36 malignant neoplasm of cervix (procedure) [code = [id number]] Future Scheduled 2023-08-12 BREAST CANCER [facility] Test 13:13:36 SCREENING [code = BREAST CANCER SCREENING] Future Scheduled 2023-08-12 Screening for [facility] Test 13:13:36 malignant neoplasm of colon (procedure) [code = [id number]] Future Scheduled 2023-08-12 Screening for [facility] Test 13:13:36 malignant neoplasm of colon (procedure) [code = [id number]] Future Scheduled 2023-08-12 SHINGLES VACCINES ([address] [facility] Test 13:13:36 of 2) [code = SHINGLES VACCINES (1 of 2)] Future Scheduled 2023-08-12 COVID-19 VACCINE (3 - [facility] Test 13:13:36 Pfizer series) [code = COVID-19 VACCINE (3 - Pfizer series)] Future Scheduled 2023-08-12 INFLUENZA VACCINE Method [facility] Test 13:13:36 (#1) [code = INFLUENZA VACCINE (#1)] Future Scheduled 2022-11-22 Hepatitis C screening [facility] Test 11:01:25 (procedure) [code = [id number]] Future Scheduled 2022-11-22 Screening for [facility] Test 11:01:25 malignant neoplasm of cervix (procedure) [code = 394009035] Future Scheduled 2022-11-22 BREAST CANCER [facility] Test 11:01:25 SCREENING [code = BREAST CANCER SCREENING] Future Scheduled 2022-11-22 COLONOSCOPY SCREENING [facility] Test 11:01:25 [code = COLONOSCOPY SCREENING] Future Scheduled 2022-11-22 SHINGLES VACCINES (1 Met [facility] Test 11:01:25 of 2) [code = SHINGLES VACCINES (1 of 2)] Future Scheduled 2022-11-22 COVID-19 VACCINE (3 - Me [facility] Test 11:01:25 Booster for Pfizer series) [code = COVID-19 VACCINE (3 - Booster for Pfizer series)] Future Scheduled 2022-11-22 INFLUENZA VACCINE Method [facility] Test 11:01:25 [code = INFLUENZA VACCINE] Future Scheduled 2022-11-22 Hepatitis C screening [facility] Test 11:01:25 (procedure) [code = 566313560] Future Scheduled 2022-11-22 Screening for [facility] Test 11:01:25 malignant neoplasm of cervix (procedure) [code = 745967312] Future Scheduled 2022-11-22 BREAST CANCER [facility] Test 11:01:25 SCREENING [code = BREAST CANCER SCREENING] Future Scheduled 2022-11-22 COLONOSCOPY SCREENING [facility] Test 11:01:25 [code = COLONOSCOPY SCREENING] Future Scheduled 2022-11-22 SHINGLES VACCINES ([address] [facility] Test 11:01:25 of 2) [code = SHINGLES VACCINES (1 of 2)] Future Scheduled 2022-11-22 COVID-19 VACCINE (3 - Me [facility] Test 11:01:25 Booster for Pfizer series) [code = COVID-19 VACCINE (3 - Booster for Pfizer series)] Future Scheduled 2022-11-22 INFLUENZA VACCINE Method [facility] Test 11:01:25 [code = INFLUENZA VACCINE] Future Scheduled 2022-11-12 Hepatitis C screening [facility] Test 11:06:40 (procedure) [code = 747629566] Future Scheduled 2022-11-12 Screening for [facility] Test 11:06:40 malignant neoplasm of cervix (procedure) [code = 432809832] Future Scheduled 2022-11-12 BREAST CANCER [facility] Test 11:06:40 SCREENING [code = BREAST CANCER SCREENING] Future Scheduled 2022-11-12 COLONOSCOPY SCREENING [facility] Test 11:06:40 [code = COLONOSCOPY SCREENING] Future Scheduled 2022-11-12 SHINGLES VACCINES ([address] [facility] Test 11:06:40 of 2) [code = SHINGLES VACCINES (1 of 2)] Future Scheduled 2022-11-12 COVID-19 VACCINE (3 - Me [facility] Test 11:06:40 Booster for Pfizer series) [code = COVID-19 VACCINE (3 - Booster for Pfizer series)] Future Scheduled 2022-11-12 INFLUENZA VACCINE [facility] Test 11:06:40 [code = INFLUENZA VACCINE] Future Scheduled 2022-10-28 Hepatitis C screening [facility] Test 13:39:23 (procedure) [code = 716905359] Future Scheduled 2022-10-28 Screening for [facility] Test 13:39:23 malignant neoplasm of cervix (procedure) [code = 272935221] Future Scheduled 2022-10-28 BREAST CANCER [facility] Test 13:39:23 SCREENING [code = BREAST CANCER SCREENING] Future Scheduled 2022-10-28 COLONOSCOPY SCREENING [facility] Test 13:39:23 [code = COLONOSCOPY SCREENING] Future Scheduled 2022-10-28 SHINGLES VACCINES ([address] [facility] Test 13:39:23 of 2) [code = SHINGLES VACCINES (1 of 2)] Future Scheduled 2022-10-28 COVID-19 VACCINE (3 - [facility] Test 13:39:23 Booster for Pfizer series) [code = COVID-19 VACCINE (3 - Booster for Pfizer series)] Future Scheduled 2022-10-28 INFLUENZA VACCINE Method [facility] Test 13:39:23 [code = INFLUENZA VACCINE] Future Scheduled 2022-10-28 Hepatitis C screening [facility] Test 13:39:23 (procedure) [code = 630248106] Future Scheduled 2022-10-28 Screening for [facility] Test 13:39:23 malignant neoplasm of cervix (procedure) [code = 135056078] Future Scheduled 2022-10-28 BREAST CANCER [facility] Test 13:39:23 SCREENING [code = BREAST CANCER SCREENING] Future Scheduled 2022-10-28 COLONOSCOPY SCREENING [facility] Test 13:39:23 [code = COLONOSCOPY SCREENING] Future Scheduled 2022-10-28 SHINGLES VACCINES (1 Met [facility] Test 13:39:23 of 2) [code = SHINGLES VACCINES (1 of 2)] Future Scheduled 2022-10-28 COVID-19 VACCINE (3 - Me [facility] Test 13:39:23 Booster for Pfizer series) [code = COVID-19 VACCINE (3 - Booster for Pfizer series)] Future Scheduled 2022-10-28 INFLUENZA VACCINE Method [facility] Test 13:39:23 [code = INFLUENZA VACCINE] Encounters Start End Encounter Admission Attending Care Care Encounter Source Date/Time Date/Time Type Type Clinicians Facility Department ID 2022-09-01 2022-09-01 Stevie Sorensen 1.2.840.1 [id number] Methodi 14:10:00 14:15:[address] 3.430.2.7 Hospit a .3.854678 l .8 2022-09-01 2022-09-01 Lab Stevie Yoon 1.2.840.1 [id number] 21 [id number] Method[facility] 14:10:00 14:15:[address] 3.430.2.7 Hospit a .3.036162 l .8 2022-09-01 2022-09-01 Office Stevie Yoon 1.2.840.1 [id number] 21 [id number] Methodi 13:20:00 13:41:[address] 3.430.2.7 Hospit a .3.883342 l .8 2022-09-01 2022-09-01 Office Stevie Yoon 1.2.840.1 [id number] Method[facility] 13:20:00 13:41:[address] 3.430.2.7 Hospit a .3.904883 l .8 2022-09-01 2022-09-01 Travel 1.2.840.1 1.2.965.191 [id number] Methodi 00:00:00 00:00:[address] 3.430.2.7 0.2.7.3.698 Ho spita .3.365934 084.8 l .8 2022-09-01 2022-09-01 Travel 1.2.840.1 1.2.465.168 [id number] [id number] Methodi 00:00:00 00:00:[address] 3.430.2.7 0.2.7.3.698 Ho spita .3.565079 084.8 l .8 2022-07-31 2022-07-31 [facility] Stevie Yoon 1.2.840.1 [id number] Methodi 00:00:00 00:00:[address] 3.430.2.7 Hospit a .3.223923 l .8 2022-06-29 2022-06-29 [facility] Stevie Yoon 1.2.840.1 [id number] Methodi 00:00:00 00:00:[address] 3.430.2.7 Hospit a .3.243342 l .8 2022-01-29 2022-01-29 [facility] Stevie Yoon 1.2.840.1 [id number] Methodi 07:59:04 23:59:[address] 3.430.2.7 Hospit a .3.143539 l .8 2022-01-29 2022-01-29 [facility] Stevie Yoon 1.2.840.1 [id number] Methodi 07:58:51 07:58:[address] 3.430.2.7 Hospit a .3.195705 l .8 2022-01-29 2022-01-29 Travel 1.2.840.1 1.2.067.340 0629 [id number] Methodi 00:00:00 00:00:[address] 3.430.2.7 0.2.7.3.698 Ho spita .3.200865 084.8 l .8 2022-01-29 2022-01-29 [facility] Radha 1.2.840.1 [id number] Methodi 00:00:00 00:00:[address] 3.430.2.7 Hospit a .3.903105 l .8 2022-01-24 2022-01-24 Refill Stevie Yoon 1.2.840.1 [id number] Methodi 00:00:00 00:00:[address] 3.430.2.7 Hospit a .3.709893 l .8 2022-01-03 2022-01-03 Travel 1.2.840.1 1.2.990.444 [id number] [id number] Methodi 00:00:00 00:00:[address] 3.430.2.7 0.2.7.3.698 Ho spita .3.688305 084.8 l .8 2022-01-01 2022-01-01 Office Stevie Yoon 1.2.840.1 [id number] 21 [id number] Methodi 13:20:00 13:46:[address] 3.430.2.7 Hospit a .3.089619 l .8 2022-01-01 2022-01-01 Travel 1.2.840.1 1.2.705.302 [id number] [id number] Methodi 00:00:00 00:00:[address] 3.430.2.7 0.2.7.3.698 Ho spita .3.420642 084.8 l .8 2022-01-01 2022-01-01 Outpatient ERNSTHELEN JIMENEZY [facility] [id number] [place] 00:00:00 00:00:[address] 2021-11-30 2021-11-30 Refill Stevie Yoon 1.2.840.1 [id number] Methodi 00:00:00 00:00:[address] 3.430.2.7 Hospit a .3.475917 l .8 2020-03-05 2020-03-05 Outpatient HELEN YOONY [facility] [id number] [place] 00:00:00 00:00:[address] 2019-04-17 2019-04-18 Outpatient ALEX [facility] [id number] [place] 00:00:00 00:00:[address] ZAKIA [address] Results This patient has no known results.
[2023-08-12] MEDS ORDERED: HYDROCODONE/APAP 10/325 TAB ONE (14:26)
[2023-08-12] MEDS ORDERED: ONDANSETRON 4 MG (ODT) TAB ONE (14:27)
[2023-08-12] MEDS ORDERED: NA CHLORIDE 0.9% 1,000 ML ONE (15:09)
[2023-08-12 15:33] LABS: Absolute Lymphocytes (CBC) 2.2 K/uL (0.7-4.9); Hematocrit 39.5 % (36.0-45.0); Lymphocytes % 24.3 % (15.3-44.8); MCV 85.8 fL (80-100); MPV 8.2 fL (7.6-11.3); Platelets 210 thou/uL (152-406); RBC Red Blood Cell Count 4.61 M/uL (3.86-4.86)
[2023-08-12 15:33] LABS: Specific Gravity 1.016 (1.005-1.030); Urine Bilirubin NEGATIVE (Negative); Urine Blood Negative (Negative); Urine Clarity Clear (Clear); Urine Color Light-Yellow (Yellow); Urine Glucose NEGATIVE (Negative); Urine Protein NEGATIVE (Negative); Urine Urobilinogen Normal (Normal); Urine pH 6.5 (5.0-7.0)
[2023-08-12 15:54] LABS: Albumin 3.4 g/dL (3.4-5.0); Bilirubin Total 0.2 mg/dL (0.2-1.0); Protein, Total 7.2 g/dL (6.4-8.2)
[2023-08-12 16:17] LABS: Potassium 3.9 mEq/L (3.5-5.1)
--- NOTE | 2023-08-12 16:49 | RAD REPORT ---
EXAM DESCRIPTION: CTAbdomen Pelvis W Contrast - 08/12/2023 4:37 pm CLINICAL HISTORY: Abdominal pain. Flank pain;Abd pain COMPARISON: No comparisons TECHNIQUE: Biphasic CT imaging of the abdomen and pelvis was performed with 100 ml non-ionic IV cont rast. All CT scans are performed using dose optimization technique as appropriate and may include automated exposure control or mA/KV adjustment according to patient size. FINDINGS: The lung bases are clear. The liver, spleen, pancreas, adrenal glands and kidneys are within normal limits. No bowel obstruction, free air, free fluid or abscess. Moderate stool is present throughout the colon . The appendix is normal. Calcified uterine fibroid No evidence of significant lymphadenopathy. No suspicious bony findings. IMPRESSION: No acute intra-abdominal or pelvic finding.
[2023-08-12] MEDS ORDERED: MORPHINE 4 MG/ML SYR ONE (17:01)
--- NOTE | 2023-08-12 17:08 | EDPHYS ---
Physician Documentation [facility] Name: Simeon Santa Age: 57 yrs Sex: Female : 1965 Arrival Date: 08/12/2023 Time: 13:54 Bed 13 Private MD: ED Physician Xander Jones HPI: 08/12 14:10 This 57 yrs old Black Female presents to ER via Wheelchair with complaints of Low Back jh7 Pain, Abdominal Pain. 14:10 The patient presents with pain that is acute, with no known mechanism of injury. jh7 57-year-old female presents with right flank pain radiating to her right lower quadrant starting this morning. She denies dysuria or fever. Reports a history of benign brain tumors and thyroid surgery. Reports that Dr. Lowe is her PCP. . Historical: - Allergies: 14:06 Codeine; ld1 - PMHx: 14:06 BRAIN TUMOR; Diabetes - NIDDM; High Cholesterol; Hypertension; ld1 - Immunization history:: Adult Immunizations up to date. - Social history:: Smoking status: Patient denies any tobacco usage or history of. Patient/guardian denies using alcohol. ROS: 14:10 Constitutional: Negative for fever, chills, and weight loss, Eyes: Negative for injury, jh7 pain, redness, and discharge, Neck: Negative for injury, pain, and swelling, Cardiovascular: Negative for chest pain, palpitations, and edema, Respiratory: Negative for shortness of breath, cough, wheezing, and pleuritic chest pain, MS/Extremity: Negative for injury and deformity, Skin: Negative for injury, rash, and discoloration, Neuro: Negative for headache, weakness, numbness, tingling, and seizure, 14:10 Abdomen/GI: Positive for abdominal pain, Negative for nausea, vomiting, and diarrhea, 14:10 Back: Positive for flank pain, on the right, 14:10 All other systems are negative, Exam: 14:10 Neck: Trachea midline, no thyromegaly or masses palpated, and no cervical jh7 lymphadenopathy. Supple, full range of motion without nuchal rigidity, or vertebral point tenderness. No Meningismus. Cardiovascular: Regular rate and rhythm with a normal S1 and S2. No gallops, murmurs, or rubs. Normal PMI, no JVD. No pulse deficits. Respiratory: Lungs have equal breath sounds bilaterally, clear to auscultation and percussion. No rales, rhonchi or wheezes noted. No increased work of breathing, no retractions or nasal flaring. Skin: Warm, dry with normal turgor. Normal color with no rashes, no lesions, and no evidence of cellulitis. MS/ Extremity: Pulses equal, no cyanosis. Neurovascular intact. Full, normal range of motion. Neuro: Awake and alert, GCS 15, oriented to person, place, time, and situation. Motor strength 5/5 in all extremities. Sensory grossly intact. Normal gait. 14:10 Constitutional: The patient appears alert, awake, in obvious pain, 14:10 Abdomen/GI: Inspection: abdomen appears normal, Bowel sounds: normal, Palpation: soft, mild abdominal tenderness, in the right lower quadrant, 14:10 Back: CVA tenderness, that is moderate, is noted on the right, Vital Signs: 14:06 BP 165 / 110; Pulse 76; Resp 18; Temp 97.6(O); Pulse Ox 99% on R/A; Weight 72.57 kg; ld1 Height 5 ft. 5 in. ; Pain 10/10; 15:30 BP 145 / 81; Pulse 66; Resp 16; Pulse Ox 100% on R/A; db 16:00 BP 159 / 83; Pulse 65; Resp 16; Pulse Ox 100% ; db 17:00 BP 145 / 82; Pulse 86; Resp 16; Pulse Ox 100% on R/A; db 14:06 Body Mass Index 26.63 (72.57 kg, 165.1 cm) ld1 14:06 Pain Scale: Adult ld1 MDM: 14:03 Patient medically screened. [facility] 17:00 Differential diagnosis: strain, sciatica, Acute appendicitis, nephrolithiasis, lumbar jh7 radiculopathy. Data reviewed: vital signs, nurses notes, lab test result(s), radiologic studies, CT scan. I considered the following discharge prescriptions or medication management in the emergency department Medications were administered in the Emergency Department. See MAR. Historians other than the Patient: Spouse/Significant Other: . Care significantly affected by the following chronic conditions: Diabetes, Hypertension. Counseling: I had a detailed discussion with the patient and/or guardian regarding the historical points, exam findings, and any diagnostic results supporting the discharge/admit diagnosis, to return to the emergency department if symptoms worsen or persist or if there are any questions or concerns that arise at home. Response to treatment: the patient's symptoms have markedly improved after treatment. ED course: Reassessed the patient and although her abdomen was warper tender, she reports that her right-sided back and gluteal pain shoot down her right lower extremity. She reports that walking worsens the pain. Agreed to try her on a muscle relaxer and advised to continue Tylenol, and alternate heat and ice.. 08/12 14:14 Order name: CBC with Diff; Complete Time: 15:40 [facility] 08/12 14:14 Order name: CMP; Complete Time: 16:18 [facility] 08/12 14:14 Order name: Lipase; Complete Time: 16:18 [facility] 08/12 14:14 Order name: Urinalysis w/ reflexes; Complete Time: 15:40 [facility] 08/12 14:14 Order name: CT Abd/Pelvis - IV Contrast Only; Complete Time: 16:56 [facility] 08/12 14:14 Order name: IV Saline Lock; Complete Time: 15:27 [facility] 08/12 14:14 Order name: Labs collected and sent; Complete Time: 15:27 [facility] 08/12 16:57 Order name: Recheck VS; Complete Time: 17:33 [facility] Administered Medications: 14:17 Drug: Ondansetron PO 4 mg PO once Route: PO; ld1 17:34 Follow up: Response: No adverse reaction db 14:17 Drug: [place] PO 10 mg-325 mg 1 tabs PO once Route: PO; ld1 17:34 Follow up: Response: No adverse reaction db 15:24 Drug: NS 0.9% IV 1000 ml IV at 1 bolus Per protocol; 1000 mL bolus Route: IV; Rate: 1 db bolus; Site: left antecubital; 16:30 Follow up: Response: No adverse reaction; IV Status: Completed infusion; IV Intake: db 1000ml 16:50 Drug: morphine IVP or IV 4 mg IVP once over 4 mins Route: IVP; Infused Over: 4 mins; db Site: left antecubital; 17:34 Follow up: Response: No adverse reaction db Disposition Summary: 08/12/23 17:08 Discharge Ordered Notes: Location: Home [facility] Problem: new [facility] Symptoms: have improved [facility] Condition: Stable 7 Diagnosis - Low back pain 7 - Right lower quadrant abdominal tenderness [facility] Followup: [facility] - With: Private Physician - When: 2 - 3 days - Reason: Recheck today's complaints Discharge Instructions: - Discharge Summary Sheet [facility] - Acute Back Pain, Adult [facility] - Musculoskeletal Pain [facility] - Pain Without a Known Cause [facility] Forms: - Medication Reconciliation Form [facility] - Thank You Letter [facility] - Prescription Opioid Use [facility] - Patient Portal Instructions [facility] - Leadership Thank You Letter [facility] Prescriptions: - Tramadol 50 mg Oral Tablet - take 1 tablet ORAL route every 8 hours as needed; 12 tablet; Refills: 0, [facility] Product Selection Permitted - orphenadrine citrate 100 mg Oral Tablet Sustained Release - take 1 tablet ORAL route 2 times per day As needed; 20 tablet; Refills: 0, [facility] Product Selection Permitted Signatures: Dispatcher [employer] Paulette Arce, RN RN ld1 Elke Dejesus, PUMP TECHNICIAN PUMP TECHNICIAN 7 Charlene Littlejohn RN RN db
--- NOTE | 2023-08-12 17:08 | ER ---
Nurse's Notes [facility] Name: Simeon Santa Age: 57 yrs Sex: Female : 1965 Arrival Date: 08/12/2023 Time: 13:54 Bed 13 Private MD: Diagnosis: Low back pain;Right lower quadrant abdominal tenderness Presentation: 08/12 14:09 Chief complaint: Patient states: LRQ pain, Right flank pain - radiates to LRQ. ld1 Coronavirus screen: At this time, the client does not indicate any symptoms associated with coronavirus-19. Ebola Screen: No symptoms or risks identified at this time. Initial Sepsis Screen: Does the patient meet any 2 criteria? No. Patient's initial sepsis screen is negative. Does the patient have a suspected source of infection? No. Patient's initial sepsis screen is negative. Risk Assessment: Do you want to hurt yourself or someone else? Patient reports no desire to harm self or others. Onset of symptoms was August 12, 2023 at 14:10. 14:09 Method Of Arrival: Wheelchair ld1 14:09 Acuity: VISHNU 3 ld1 Triage Assessment: 14:06 General: Appears in no apparent distress. uncomfortable, Behavior is calm, cooperative, ld1 appropriate for age. Pain: Complains of pain in back and abdomen Pain does not radiate. Pain currently is 10 out of 10 on a pain scale. Quality of pain is described as throbbing, Pain began 1 day ago. EENT: No signs and/or symptoms were reported regarding the EENT system. Neuro: Level of Consciousness is awake, alert, obeys commands, Oriented to person, place, time, situation. Cardiovascular: Capillary refill < 3 seconds Patient's skin is warm and dry. Respiratory: Airway is patent Respiratory effort is even, unlabored. GI: Abdomen is flat, non-distended, Reports lower abdominal pain. : No signs and/or symptoms were reported regarding the genitourinary system. : Reports pain in right flank(s). Derm: No signs and/or symptoms reported regarding the dermatologic system. Musculoskeletal: No signs and/or symptoms reported regarding the musculoskeletal system. Historical: - Allergies: 14:06 Codeine; ld1 - PMHx: 14:06 BRAIN TUMOR; Diabetes - NIDDM; High Cholesterol; Hypertension; ld1 - Immunization history:: Adult Immunizations up to date. - Social history:: Smoking status: Patient denies any tobacco usage or history of. Patient/guardian denies using alcohol. Screenin:34 [facility] ED Fall Risk Assessment (Adult) History of falling in the last 3 months, db including since admission No falls in past 3 months (0 pts) Score/Fall Risk Level 0 - 2 = Low Risk Oriented to surroundings, Maintained a safe environment. Abuse screen: Denies threats or abuse. Denies injuries from another. Nutritional screening: No deficits noted. Tuberculosis screening: No symptoms or risk factors identified. Assessment: 15:33 Reassessment: Patient appears in no apparent distress at this time. Patient and/or db family updated on plan of care and expected duration. Pain level reassessed. Patient is alert, oriented x 3, equal unlabored respirations, skin warm/dry/pink. RIGHT FLANK PAIN. 17:36 GI: Bowel sounds present X 4 quads. Abd is soft. db Vital Signs: 14:06 BP 165 / 110; Pulse 76; Resp 18; Temp 97.6(O); Pulse Ox 99% on R/A; Weight 72.57 kg; ld1 Height 5 ft. 5 in. ; Pain 10/10; 15:30 BP 145 / 81; Pulse 66; Resp 16; Pulse Ox 100% on R/A; db 16:00 BP 159 / 83; Pulse 65; Resp 16; Pulse Ox 100% ; db 17:00 BP 145 / 82; Pulse 86; Resp 16; Pulse Ox 100% on R/A; db 14:06 Body Mass Index 26.63 (72.57 kg, 165.1 cm) ld1 14:06 Pain Scale: Adult ld1 ED Course: 14:02 Patient arrived in ED. mg5 14:02 Elke Dejesus FNP is PHCP. jh7 14:02 Xander Jones MD is Attending Physician. jh7 14:06 Arm band placed on right wrist. ld1 14:10 Triage completed. ld1 14:50 Charlene Littlejohn, AMADO is Primary Nurse. db 15:18 Missed attempt(s): 20 gauge in right antecubital area. Bleeding controlled, band aid db applied, catheter tip intact. 15:22 Inserted saline lock: 22 gauge in left antecubital area, using aseptic technique. Blood db collected. 16:39 CT Abd/Pelvis - IV Contrast Only In Process Unspecified. EDMS 17:36 Patient has correct armband on for positive identification. Bed in low position. Call db light in reach. Side rails up X 1. Pulse ox on. NIBP on. Warm blanket given. 17:36 Provided Education on: DISCHARGE. db 17:36 No provider procedures requiring assistance completed. IV discontinued, intact, db bleeding controlled, No redness/swelling at site. Administered Medications: 14:17 Drug: Ondansetron PO 4 mg PO once Route: PO; ld1 17:34 Follow up: Response: No adverse reaction db 14:17 Drug: [place] PO 10 mg-325 mg 1 tabs PO once Route: PO; ld1 17:34 Follow up: Response: No adverse reaction db 15:24 Drug: NS 0.9% IV 1000 ml IV at 1 bolus Per protocol; 1000 mL bolus Route: IV; Rate: 1 db bolus; Site: left antecubital; 16:30 Follow up: Response: No adverse reaction; IV Status: Completed infusion; IV Intake: db 1000ml 16:50 Drug: morphine IVP or IV 4 mg IVP once over 4 mins Route: IVP; Infused Over: 4 mins; db Site: left antecubital; 17:34 Follow up: Response: No adverse reaction db Medication: 17:34 VIS not applicable for this client. db Intake: 16:30 IV: 1000ml; Total: 1000ml. db Outcome: 17:08 Discharge ordered by MD. gonzalez 17:35 Discharged to home ambulatory, with significant other, db 17:35 Condition: stable 17:35 Discharge instructions given to patient, Instructed on discharge instructions, follow up and referral plans. Prescriptions given X 2, 17:36 Patient left the ED. db Signatures: Dispatcher [employer] EDMS Paulette Jamison, RN RN ld1 Elke Dejesus FNP FNP 7 Charlene Littlejohn, RN RN Savita Stewart mg5
[2023-08-12 19:41] VITALS: TEMP 97.6
[2023-08-12 19:42] VITALS: O2SAT 100
[2023-08-12 19:44] VITALS: BP 145/82
== END 2023-08-12 17:36 | disposition home or self-care (01) ==
LOC: ER 13:54
DX: M54.50 Low back pain, unspecified (principal); R10.31 Right lower quadrant pain; I10 Essential (primary) hypertension; E11.9 Type 2 diabetes mellitus without complications; Z88.5 Allergy status to narcotic agent; Z86.011 Personal history of benign neoplasm of the brain
CPT/HCPCS: 96361; 85025; 36415; 81003; 83690; 80053; 74177; 96374; 99284; Q0162; J7030